=== PATIENT | female | born 1930 | race Two or more races ===

== ENCOUNTER 2016-09-19 19:55 | Inpatient (IN) | payer MEDICAID ==
[~2016-09-19] VITALS: Ht 152.4 cm; Wt 47.6 kg
[2016-09-19 20:21] LABS: MEAN CORPUSCULAR HEMOGLOBIN 29.9 PG (27.0-31.0); MEAN CORPUSCULAR VOLUME 91 FL (80-99); PLATELET COUNT 258 K/UL (150-450); RED CELL DISTRIBUTION WIDTH 14.3 % (11.6-14.8); WHITE BLOOD COUNT 18.7 K/UL (4.8-10.8)
[2016-09-19 20:26] LABS: BASOPHILS % (AUTO) 0.5 % (0.0-2.0); EOSINOPHILS % (AUTO) 0.1 % (0.0-3.0); LYMPHOCYTES % (AUTO) 17.6 % (20.0-45.0); NEUTROPHILS % (AUTO) 75.8 % (45.0-75.0)
--- NOTE | 2016-09-19 20:29 | Emergency Room Report ---
History of Present Illness General Chief Complaint: Vomiting Source: Medical Record Present Illness HPI patient was reported to have vomiting Has a history of Alzheimer's and dementia Is at baseline levels of mentation per paramedics History of present illness however is limited as the patient herself is not verbal with us And cannot provide any further input Patient does have a feeding tube in place unknown regarding diarrhea unknown regarding general health as far as weakness Unknown as far as change in medications Allergies: Coded Allergies: No Known Allergies (Unverified , 09/19/16) Patient History Limited by: medical condition Past Medical History: see triage record Pertinent Family History: none Reviewed Nursing Documentation: PMH: Agreed, PSxH: Agreed Nursing Documentation-PMH Hx Hypertension: Yes Hx Diabetes: Yes Review of Systems All Other Systems: limited - Other than the ones mentioned in the history of present illness all others are reviewed however they do stay limited due to the patient's mental status Physical Exam Vital Signs Date Time Temp Pulse Resp B/P Pulse Ox O2 Delivery O2 Flow Rate FiO2 09/19/16 19:48 98.1 88 16 138/76 98 Room Air Sp02 EP Interpretation: reviewed, normal General Appearance: no apparent distress Head: normocephalic, atraumatic Eyes: bilateral eye EOMI, bilateral eye PERRL ENT: hearing grossly normal, normal pharynx, TMs + canals normal, uvula midline , other - Patient does have some dried brown material in her oral mucosa Neck: full range of motion, supple, no meningismus, no bony tend Respiratory: lungs clear, normal breath sounds, no rhonchi, no respiratory distress, no retraction, no accessory muscle use Cardiovascular #1: normal peripheral pulses, regular rate, rhythm, no edema, no gallop, no JVD, no murmur Gastrointestinal: normal bowel sounds, non tender, soft, no mass, no organomegaly, non-distended, no guarding, no hernia, no pulsatile mass, no rebound, other - feeding tube in place Genitourinary: no CVA tenderness Musculoskeletal: other - Patient does not follow commands musculoskeletal exam is difficult however no obvious focal deficit, Neurologic: responsive, sensory intact Psychiatric: mood/affect normal Skin: normal color, no rash, warm/dry, palpation normal Lymphatic: normal inspection, no adenopathy Medical Decision Making Diagnostic Impression: Primary Impression: GI bleed Additional Impression: Leukocytosis ER Course Patient does have evidence of coffee-ground emesis Concerning for acute GI bleed Patient was given IV Protonix hydration initially is obtained and performed Patient's hemoglobin is stable and further transfusion was not done Patient admitted for the further inpatient care Labs Test 09/19/16 20:10 White Blood Count 18.7 K/UL (4.8-10.8) Red Blood Count 4.70 M/UL (4.20-5.40) Hemoglobin 14.1 G/DL (12.0-16.0) Hematocrit 42.6 % (37.0-47.0) Mean Corpuscular Volume 91 FL (80-99) Mean Corpuscular Hemoglobin 29.9 PG (27.0-31.0) Mean Corpuscular Hemoglobin Concent 33.0 G/DL (32.0-36.0) Red Cell Distribution Width 14.3 % (11.6-14.8) Platelet Count 258 K/UL (150-450) Mean Platelet Volume 8.0 FL (6.5-10.1) Neutrophils (%) (Auto) 75.8 % (45.0-75.0) Lymphocytes (%) (Auto) 17.6 % (20.0-45.0) Monocytes (%) (Auto) 6.0 % (1.0-10.0) Eosinophils (%) (Auto) 0.1 % (0.0-3.0) Basophils (%) (Auto) 0.5 % (0.0-2.0) Prothrombin Time 10.7 SEC (9.30-11.50) Prothromb Time International Ratio 1.1 (0.9-1.1) Activated Partial Thromboplast Time 26 SEC (23-33) Sodium Level 139 mEQ/L (135-145) Potassium Level 4.6 mEQ/L (3.4-4.9) Chloride Level 99 mEQ/L (98-107) Carbon Dioxide Level 21 mEQ/L (20-30) Anion Gap 19 (5-15) Blood Urea Nitrogen 50 mg/dL (7-23) Creatinine 0.5 mg/dL (0.5-0.9) Estimat Glomerular Filtration Rate mL/min (>60) Glucose Level 185 mg/dL (74-106) Calcium Level 9.2 mg/dL (8.6-10.2) Total Bilirubin 1.4 mg/dL (0.0-1.2) Direct Bilirubin 0.2 mg/dL (0.1-0.3) Aspartate Amino Transf (AST/SGOT) 19 U/L (5-40) Alanine Aminotransferase (ALT/SGPT) 27 U/L (3-33) Alkaline Phosphatase 96 U/L (35-104) Total Creatine Kinase 31 U/L (26-140) Creatine Kinase MB 2.1 ng/mL (< 3.8) Creatine Kinase MB Relative Index 6.7 Troponin I < 0.30 ng/mL (<=0.30) Pro-B-Type Natriuretic Peptide 321 pg/mL (0-450) Total Protein 6.7 g/dL (6.6-8.7) Albumin 3.5 g/dL (3.5-5.2) Globulin 3.2 g/dL Albumin/Globulin Ratio 1.0 (1.0-2.7) Lipase 26 U/L (< 60) Rhythm Strip Diag. Results EP Interpretation: yes Rate: 74 Rhythm: NSR, no PVC's, no ectopy Chest X-Ray Diagnostic Results EP Interpretation: Yes Findings: no consolidation, no effusion, no pneumothorax Number of Views: 1 Last Vital Signs Date Time Temp Pulse Resp B/P Pulse Ox O2 Delivery O2 Flow Rate FiO2 09/19/16 19:48 98.1 88 16 138/76 98 Room Air Status: improved Disposition: ADMITTED INPATIENT Condition: Serious DMITRY RICARDO D.O. Sep 19, 2016 20:29
[2016-09-19 20:34] LABS: INR 1.1 (0.9-1.1); PROTHROMBIN TIME 10.7 SEC (9.30-11.50)
[2016-09-19 20:36] LABS: ALANINE AMINOTRANSFERASE 27 U/L (3-33); ASPARTATE AMINO TRANSFERASE 19 U/L (5-40); CALCIUM 9.2 mg/dL (8.6-10.2); CHLORIDE 99 mEQ/L (98-107); CREATININE 0.5 mg/dL (0.5-0.9); HEMOLYSIS 13; LIPASE 26 U/L (< 60); POTASSIUM 4.6 mEQ/L (3.4-4.9); SODIUM 139 mEQ/L (135-145); TOTAL PROTEIN 6.7 g/dL (6.6-8.7)
[2016-09-19 20:37] LABS: TROPONIN I < 0.30 ng/mL (<=0.30)
[2016-09-19 20:47] LABS: CKMB 2.1 ng/mL (< 3.8)
[2016-09-19 21:05] LABS: ANION GAP 19 (5-15); CARBON DIOXIDE 21 mEQ/L (20-30)
[2016-09-19 21:13] VITALS: BP 145/45
[2016-09-19 21:21] LABS: BILIRUBIN,DIRECT 0.2 mg/dL (0.1-0.3)
[2016-09-19] MEDS ORDERED: Pantoprazole Inj IVP ONE (21:30)
[2016-09-19] MEDS ORDERED: cefTRIAXone 1 GM in NS 55 ML IVPB ONE (21:30)
[2016-09-19] MEDS ORDERED: ATORVASTATIN CA20 MG ORAL (21:36)
[2016-09-19] MEDS ORDERED: DOCUSATE SODIU100 MG ORAL (21:36)
[2016-09-19] MEDS ORDERED: MULTI-DELYN237 ML GT (21:36)
[2016-09-19] MEDS ORDERED: ARICEPT10 MG ORAL (21:36)
[2016-09-19 22:30] VITALS: BP 122/64
--- NOTE | 2016-09-19 23:41 | General Progress Note ---
Assessment/Plan Assessment/Plan GI Consult Dictated Assessment - ? small volume UGIB - Leukocytosis, ? aspiration, ?other - OBS - s/p PEG - bedbound Recommendations - IVF - follow CBC - emperic abx - PPI - hold feeds - EGD early next week - will d/w next of kin in am Thank you Payal Subjective Allergies: Coded Allergies: No Known Allergies (Unverified , 09/19/16) Objective Last 24 Hour Vital Signs Date Time Temp Pulse Resp B/P Pulse Ox O2 Delivery O2 Flow Rate FiO2 09/19/16 22:30 97.5 137 20 122/64 95 Room Air 09/19/16 22:30 97.5 120 19 122/64 97 Room Air 09/19/16 21:13 98.2 120 20 145/45 100 Room Air 09/19/16 19:48 98.1 88 16 138/76 98 Room Air Laboratory Tests 09/19/16 20:10: White Blood Count 18.7H, Red Blood Count 4.70, Hemoglobin 14.1, Hematocrit 42.6 , Mean Corpuscular Volume 91, Mean Corpuscular Hemoglobin 29.9, Mean Corpuscular Hemoglobin Concent 33.0, Red Cell Distribution Width 14.3, Platelet Count 258, Mean Platelet Volume 8.0, Neutrophils (%) (Auto) 75.8H, Lymphocytes ( %) (Auto) 17.6L, Monocytes (%) (Auto) 6.0, Eosinophils (%) (Auto) 0.1, Basophils (%) (Auto) 0.5, Prothrombin Time 10.7, Prothromb Time International Ratio 1.1, Activated Partial Thromboplast Time 26, Sodium Level 139, Potassium Level 4.6, Chloride Level 99, Carbon Dioxide Level 21, Anion Gap 19H, Blood Urea Nitrogen 50H, Creatinine 0.5, Estimat Glomerular Filtration Rate , Glucose Level 185H, Calcium Level 9.2, Total Bilirubin 1.4H, Direct Bilirubin 0.2, Aspartate Amino Transf (AST/SGOT) 19, Alanine Aminotransferase (ALT/SGPT) 27, Alkaline Phosphatase 96, Total Creatine Kinase 31, Creatine Kinase MB 2.1, Creatine Kinase MB Relative Index 6.7, Troponin I < 0.30, Pro-B-Type Natriuretic Peptide 321, Total Protein 6.7, Albumin 3.5, Globulin 3.2, Albumin/ Globulin Ratio 1.0, Lipase 26 Height (Feet): 5 Weight (Pounds): 105 NUZHAT WALTON Sep 19, 2016 23:41
[2016-09-19] MEDS: D5 1/2NS w/KCl 40meq 1000ml 1,000 ML IV SCH (23:52)
[2016-09-20 00:04] VITALS: BP 127/58
[2016-09-20] MEDS: Zolpidem 5mg tab ORAL PRN (00:05)
[2016-09-20 04:03] VITALS: BP 129/51
[2016-09-20] MEDS ORDERED: Zosyn 3.375gm inj ONE (05:34)
[2016-09-20] MEDS ORDERED: Piperacillin/Tazobactam 2.25 GM in D5W 55 ML IVPB SCH (06:00)
[2016-09-20] MEDS: Zosyn 3.375gm q8h **Extended infusion IVPB SCH ×6 (06:40→21:01)
[2016-09-20 07:39] LABS: BASOPHILS % (AUTO) 0.4 % (0.0-2.0); EOSINOPHILS % (AUTO) 0.4 % (0.0-3.0); LYMPHOCYTES % (AUTO) 22.9 % (20.0-45.0); MEAN CORPUSCULAR HEMOGLOBIN 30.1 PG (27.0-31.0); MEAN CORPUSCULAR HGB CONC 33.2 G/DL (32.0-36.0); MEAN CORPUSCULAR VOLUME 91 FL (80-99); MEAN PLATELET VOLUME 8.4 FL (6.5-10.1); NEUTROPHILS % (AUTO) 69.3 % (45.0-75.0); PLATELET COUNT 214 K/UL (150-450); RED BLOOD COUNT 3.52 M/UL (4.20-5.40); RED CELL DISTRIBUTION WIDTH 14.7 % (11.6-14.8); WHITE BLOOD COUNT 15.1 K/UL (4.8-10.8)
[2016-09-20 08:00] VITALS: BP 95/49
[2016-09-20] MEDS: Multivitamin 5ml Liquid GT SCH (08:32)
[2016-09-20] MEDS: Docusate 100mg tablet NG SCH (08:32)
[2016-09-20] MEDS: Donepezil 10mg tab ORAL SCH (08:32)
[2016-09-20] MEDS: Pantoprazole Inj IV SCH (08:33)
[2016-09-20] MEDS ORDERED: Docusate 100mg cap ORAL SCH (09:00)
--- NOTE | 2016-09-20 09:50 | General Progress Note ---
Assessment/Plan Assessment/Plan Assessment - UGIB - anemia / drop in H&H - Leukocytosis, ? aspiration, ?other - OBS - s/p PEG - bedbound Recommendations - IVF - follow CBC - emperic abx - PPI - hold feeds - EGD in am Subjective Allergies: Coded Allergies: No Known Allergies (Unverified , 09/19/16) Subjective uneventful night confused no vomiting d/w DTR - agreed to EGD Objective Last 24 Hour Vital Signs Date Time Temp Pulse Resp B/P Pulse Ox O2 Delivery O2 Flow Rate FiO2 09/20/16 08:46 93 09/20/16 04:03 97.8 99 17 129/51 96 Room Air 09/20/16 04:00 98 09/20/16 00:04 98.2 132 19 127/58 92 Room Air 09/20/16 00:00 125 09/19/16 22:30 97.5 137 20 122/64 95 Room Air 09/19/16 22:30 97.5 120 19 122/64 97 Room Air 09/19/16 21:13 98.2 120 20 145/45 100 Room Air 09/19/16 19:48 98.1 88 16 138/76 98 Room Air Intake and Output 09/19/16 09/20/16 19:00 07:00 Intake Total 2000 ml Output Total 400 ml Balance 1600 ml Intake IV Total 950 ml Other 1050 ml Output Urine Total 400 ml Laboratory Tests 09/19/16 20:10: White Blood Count 18.7H, Red Blood Count 4.70, Hemoglobin 14.1, Hematocrit 42.6 , Mean Corpuscular Volume 91, Mean Corpuscular Hemoglobin 29.9, Mean Corpuscular Hemoglobin Concent 33.0, Red Cell Distribution Width 14.3, Platelet Count 258, Mean Platelet Volume 8.0, Neutrophils (%) (Auto) 75.8H, Lymphocytes ( %) (Auto) 17.6L, Monocytes (%) (Auto) 6.0, Eosinophils (%) (Auto) 0.1, Basophils (%) (Auto) 0.5, Prothrombin Time 10.7, Prothromb Time International Ratio 1.1, Activated Partial Thromboplast Time 26, Sodium Level 139, Potassium Level 4.6, Chloride Level 99, Carbon Dioxide Level 21, Anion Gap 19H, Blood Urea Nitrogen 50H, Creatinine 0.5, Estimat Glomerular Filtration Rate , Glucose Level 185H, Calcium Level 9.2, Total Bilirubin 1.4H, Direct Bilirubin 0.2, Aspartate Amino Transf (AST/SGOT) 19, Alanine Aminotransferase (ALT/SGPT) 27, Alkaline Phosphatase 96, Total Creatine Kinase 31, Creatine Kinase MB 2.1, Creatine Kinase MB Relative Index 6.7, Troponin I < 0.30, Pro-B-Type Natriuretic Peptide 321, Total Protein 6.7, Albumin 3.5, Globulin 3.2, Albumin/ Globulin Ratio 1.0, Lipase 26 09/20/16 06:45: White Blood Count 15.1H, Red Blood Count 3.52L, Hemoglobin 10.6L, Hematocrit 31.9L, Mean Corpuscular Volume 91, Mean Corpuscular Hemoglobin 30.1, Mean Corpuscular Hemoglobin Concent 33.2, Red Cell Distribution Width 14.7, Platelet Count 214, Mean Platelet Volume 8.4, Neutrophils (%) (Auto) 69.3, Lymphocytes (% ) (Auto) 22.9, Monocytes (%) (Auto) 7.0, Eosinophils (%) (Auto) 0.4, Basophils ( %) (Auto) 0.4 Height (Feet): 5 Height (Inches): 0.00 Weight (Pounds): 105 Objective Elderly woman NCAT supple CTA RRR soft ND NT no edema nonfocal/confused NUZHAT WALTON Sep 20, 2016 09:50
[2016-09-20 11:54] VITALS: BP 108/61
--- NOTE | 2016-09-20 11:56 | History & Physical ---
History and Physical History & Physicial dictated [id number] AVILA CHRIS Sep 20, 2016 11:56
[2016-09-20] MEDS: D5 1/2NS w/KCl 40meq 1000ml 1,000 ML IV SCH (13:56)
[2016-09-20 16:00] VITALS: BP 107/66
--- NOTE | 2016-09-20 19:37 | Cardiology Report ---
APPROVED REPORT EKG Measurement Heart [id number] Sinus tachycardia Otherwise normal ECG
[2016-09-20 20:00] VITALS: BP 132/63
[2016-09-20] MEDS: LORazepam Inj 2mg/ml 1ml IV PRN (21:01)
[2016-09-20] MEDS: Atorvastatin 20mg tab ORAL SCH (21:01)
--- NOTE | 2016-09-20 22:47 | Consultation ---
DATE OF CONSULTATION: 09/19/2016 GASTROLOGY CONSULTATION: CONSULTING PHYSICIAN: Khurram Moe M.D. REFERRING PHYSICIAN: Nino Hernandez M.D. CHIEF COMPLAINT: I was asked to see this patient by Dr. Nino Hernandez for evaluation of gastrointestinal bleeding. HISTORY OF PRESENT ILLNESS: The patient is an unfortunate 86-year-old white woman with advanced dementia, who was mumbling incoherently when I examined her, who was brought into the hospital with vomiting and possible coffee-ground emesis. There is history available but according to the chart, the patient was noted to have some coffee-ground emesis. There was no melena reported and no hematochezia. The patient had leukocytosis in the emergency room and the source is unclear. The patient diagnosis through observation and treatment. The patient has contracture deformities and obviously is bedbound. PAST MEDICAL HISTORY: As above for history of dementia and status post gastrostomy tube placement. MEDICATIONS: See chart for details. FAMILY HISTORY: Not available. SOCIAL HISTORY: The patient resides in a group home, otherwise no social history is available. REVIEW OF SYSTEMS: Unobtainable. PHYSICAL EXAMINATION: GENERAL: This is a debilitated elderly woman, who was mumbling incoherently, and was seen in her room with the nurse at the bedside. HEENT: Normocephalic and atraumatic. Sclerae were anicteric. Oropharynx is clear. NECK: Supple. CHEST: Clear to auscultation. CARDIOVASCULAR: Regular rate. ABDOMEN: Soft with good bowel sounds. Gastrostomy tube was in good position and it appeared to have some dark aspirate. EXTREMITIES: Revealed contracture deformities. NEUROLOGIC: Nonfocal. LABORATORY DATA: Noted. ASSESSMENT: This patient presents with coffee-ground emesis without christofer melena or hypertension. Hematocrit is preserved with hydration. The patient does have leukocytosis of unclear source. One possibility is that she may have aspirated during the process of emesis for pulmonary aspiration. Alternatively, she may have had a different source of urinary tract infection. I will place the patient on broad-spectrum antibiotics until further evaluation is complete. In the meantime, she should also be kept NPO proton- pump inhibitor. CBC will be followed. The patient should undergo endoscopy in the next few days. RECOMMENDATIONS: Per above discussion and per orders written in the chart. Thank you for asking me to participate in the care of this patient. Khurram Moe M.D. DR: Jazz JOB#: [id number] CC:
[2016-09-21] VITALS (9 sets, daily range): BP systolic 104–134; BP diastolic 48–79
[2016-09-21] MEDS: Zolpidem 5mg tab ORAL PRN (00:09)
[2016-09-21] MEDS: D5 1/2NS w/KCl 40meq 1000ml 1,000 ML IV SCH (01:45)
--- NOTE | 2016-09-21 02:08 | History and Physical Report ---
DATE OF ADMISSION: 09/19/2016 CHIEF COMPLAINT: The patient was found to have some vomiting. HISTORY OF PRESENT ILLNESS: This is an 86-year-old female, who has a history of Alzheimer dementia, unable to provide any history. History was obtained mainly from the chart. The patient was brought with reported vomiting, per the ER physician it was coffee ground. The patient was diagnosed with upper gastrointestinal bleed and was admitted. PAST MEDICAL HISTORY: There is a reported history of hypertension and diabetes. MEDICATIONS: Reviewed in the EMR. SOCIAL HISTORY: Unobtainable. REVIEW OF SYSTEMS: Unobtainable. PHYSICAL EXAMINATION: GENERAL: The patient is a elderly female, she is nonverbal. VITAL SIGNS: Blood pressure 95/49, pulse 96, temperature 96.3, respiratory rate 18. HEENT: Pale conjunctivae. Anicteric sclerae. NECK: Supple. LUNGS: Clear to auscultation. HEART: S1 and S2 without murmurs or rubs. ABDOMEN: Soft and nontender. There is a G-tube in upper abdomen. EXTREMITIES: No cyanosis or edema. LABORATORY FINDINGS: The chemistry panel shows serum sodium 139, potassium 4.6, chloride 99, CO2 21, blood sugar is 185. AST 19, ALT 27, total bilirubin is 1.4. CBC shows a WBC of 15.1, hematocrit 31.9, hemoglobin is 10.6, platelets 214,000. ASSESSMENT: This is a 86-year-old female with history of advanced dementia who is admitted with reported coffee-grounds emesis. She has leukocytosis, her initial hematocrit 42.6, but there is significant drop to 31.9 after hydration so probably the patient was dehydrated and now anemia is unmasked PLAN: The patient will be on IV fluids and NPO. Hemoglobin and hematocrit will be followed. The patient was seen by Dr. Moe in GI consultation. The patient is on intravenous Protonix and further change in management will be done based on the above results. Nino Hernandez M.D. DR: Stephenie JOB#: [id number] CC: VIRGILIO
[2016-09-21] MEDS: Zosyn 3.375gm q8h **Extended infusion IVPB SCH ×6 (06:49→21:01)
[2016-09-21 08:18] LABS: BASOPHILS % (AUTO) 0.6 % (0.0-2.0); EOSINOPHILS % (AUTO) 3.9 % (0.0-3.0); MEAN CORPUSCULAR HEMOGLOBIN 29.8 PG (27.0-31.0); MEAN CORPUSCULAR HGB CONC 32.8 G/DL (32.0-36.0); MEAN CORPUSCULAR VOLUME 91 FL (80-99); MEAN PLATELET VOLUME 8.5 FL (6.5-10.1); MONOCYTES % (AUTO) 6.5 % (1.0-10.0); NEUTROPHILS % (AUTO) 62.1 % (45.0-75.0); PLATELET COUNT 206 K/UL (150-450); RED BLOOD COUNT 3.09 M/UL (4.20-5.40); RED CELL DISTRIBUTION WIDTH 14.5 % (11.6-14.8); WHITE BLOOD COUNT 10.8 K/UL (4.8-10.8)
[2016-09-21 08:29] LABS: ALANINE AMINOTRANSFERASE 15 U/L (3-33); ANION GAP 10 (5-15); ASPARTATE AMINO TRANSFERASE 15 U/L (5-40); CALCIUM 8.3 mg/dL (8.6-10.2); CARBON DIOXIDE 24 mEQ/L (20-30); CHLORIDE 105 mEQ/L (98-107); CREATININE 0.6 mg/dL (0.5-0.9); HEMOLYSIS 3; POTASSIUM 4.7 mEQ/L (3.4-4.9); SODIUM 139 mEQ/L (135-145); TOTAL PROTEIN 5.2 g/dL (6.6-8.7)
[2016-09-21 08:44] LABS: BILIRUBIN,DIRECT 0.2 mg/dL (0.1-0.3)
[2016-09-21] MEDS: Donepezil 10mg tab ORAL SCH ×2 (09:00→09:06)
[2016-09-21] MEDS: Docusate 100mg tablet NG SCH ×2 (09:00→09:06)
[2016-09-21] MEDS: Pantoprazole Inj IV SCH ×2 (09:00→09:06)
[2016-09-21] MEDS: Multivitamin 5ml Liquid GT SCH ×2 (09:00→09:06)
[2016-09-21] MEDS ORDERED: Lidocaine 1% MPF 10mg/ml 5ml ONE (11:30)
[2016-09-21] MEDS ORDERED: Propofol 10mg/ml 20ml IV ONE (11:30)
[2016-09-21] MEDS ORDERED: LR 1000ml ONE (11:30)
--- NOTE | 2016-09-21 11:31 | General Progress Note ---
Assessment/Plan Assessment/Plan Assessment - UGIB - anemia / drop in H&H - Leukocytosis, ? aspiration, ?other - OBS - s/p PEG - bedbound Recommendations - IVF - follow CBC - emperic abx - PPI - hold feeds - EGD in am Subjective Allergies: Coded Allergies: No Known Allergies (Unverified , 09/19/16) Subjective seen in GI lab NPO for EGD H&H lower WBC now normal Objective Last 24 Hour Vital Signs Date Time Temp Pulse Resp B/P Pulse Ox O2 Delivery O2 Flow Rate FiO2 09/21/16 08:00 96.0 90 18 107/58 94 Room Air 09/21/16 08:00 80 09/21/16 04:33 89 09/21/16 04:00 97.0 97 20 115/52 98 Room Air 09/21/16 04:00 89 09/21/16 00:00 97.0 110 21 134/79 96 Room Air 09/21/16 00:00 113 09/20/16 20:00 123 09/20/16 20:00 97.9 127 20 132/63 96 Room Air 09/20/16 16:00 96.8 115 20 107/66 96 Room Air 09/20/16 16:00 128 09/20/16 12:00 96 09/20/16 11:54 97.1 111 18 108/61 Intake and Output 09/20/16 09/21/16 19:00 07:00 Intake Total 535.0 ml 585.0 ml Output Total 300 ml 500 ml Balance 235.0 ml 85.0 ml Intake Free Water 50 ml IV Total 485.0 ml 485.0 ml Other 100 ml Output Urine Total 300 ml 500 ml # Bowel Movements 1 Laboratory Tests 09/21/16 07:30: White Blood Count 10.8, Red Blood Count 3.09L, Hemoglobin 9.2L, Hematocrit 28.1L , Mean Corpuscular Volume 91, Mean Corpuscular Hemoglobin 29.8, Mean Corpuscular Hemoglobin Concent 32.8, Red Cell Distribution Width 14.5, Platelet Count 206, Mean Platelet Volume 8.5, Neutrophils (%) (Auto) 62.1, Lymphocytes (% ) (Auto) 27.0, Monocytes (%) (Auto) 6.5, Eosinophils (%) (Auto) 3.9H, Basophils (%) (Auto) 0.6, Sodium Level 139, Potassium Level 4.7, Chloride Level 105, Carbon Dioxide Level 24, Anion Gap 10, Blood Urea Nitrogen 22#, Creatinine 0.6, Estimat Glomerular Filtration Rate , Glucose Level 107H, Calcium Level 8.3L, Total Bilirubin 1.1, Direct Bilirubin 0.2, Aspartate Amino Transf (AST/SGOT) 15 , Alanine Aminotransferase (ALT/SGPT) 15, Alkaline Phosphatase 68, Total Protein 5.2L, Albumin 2.7L, Globulin 2.5, Albumin/Globulin Ratio 1.0 Height (Feet): 5 Height (Inches): 0.00 Weight (Pounds): 105 Objective Elderly woman NCAT supple CTA RRR soft ND NT no edema nonfocal/confused NUZHAT WALTON Sep 21, 2016 11:31
--- NOTE | 2016-09-21 11:32 | Pre-Procedure Note/Attestation ---
Pre-Procedure Note/Attestation Complete Prior to Procedure Planned Procedure: not applicable Procedure Narrative: EGD Indications for Procedure Pre-Operative Diagnosis: UGIB Attestation I attest that I discussed the nature of the procedure; its benefits; risks and complications; and alternatives (and the risks and benefits of such alternatives ), prior to the procedure, with the patient (or the patient's legal quality audit representative). I attest that, if there was a reasonable possibility of needing a blood transfusion, the patient (or the patient's legal quality audit representative) was given the [facility] standardized written summary, pursuant to the Dom [employer] Blood Safety Act ([place] Health and Safety Code # 1645, as amended). I attest that I re-evaluated the patient just prior to the surgery and that there has been no change in the patient's H&P, except as documented below: NUZHAT WALTON Sep 21, 2016 11:32
[2016-09-21] MEDS ORDERED: NS 275ml IVPB ONE (11:46)
--- NOTE | 2016-09-21 11:57 | Endoscopy Procedure Note ---
Endoscopy Procedure Note Indication for Procedure: GIB Procedures Performed: EGD Operative Findings/Diagnosis: severe esophagitis with ulcers, bx esophagus Specimen: yes Pt Tolerated Procedure Well: Yes Estimated Blood Loss: none Anesthesiologist: see report Anesthesia: MAC Medication Given: see anesthesia record Implant(s) used?: No 50 yrs or older w/o bx or poly: Not Applicable 10yrs. F/U not recommended: Not Applicable If not recommended, why?: NUZHAT WALTON Sep 21, 2016 11:57
--- NOTE | 2016-09-21 11:58 | Brief Operative Note ---
Immediate Post Operative Note Operative Note Chief Complaint: GIB Pre-op Diagnosis: UGIB Procedure: EGD/Bx Post-op Diagnosis: GERD/ulcers Surgeon: haylie Anesthesiologist: see report Anesthesia: MAC Specimen: yes Complications: none Condition: stable Estimated Blood Loss: none Drains: none Implant(s) used?: No NUZHAT WALTON Sep 21, 2016 11:58
[2016-09-21] MEDS ORDERED: Pantoprazole 40mg pkt NG SCH (12:00)
[2016-09-21] MEDS ORDERED: LR 1000ml 1,000 ML IVLG SCH (12:04)
--- NOTE | 2016-09-21 12:04 | Anethesia Preoperative Eval ---
Anesthesia Pre-op PMH/ROS General Date of Evaluation: Sep 21, 2016 Time of Evaluation: 11:39 Anesthesiologist: Karin ASA Score: ASA 3 Mallampati Score Class I : Soft palate, uvula, fauces, pillars visible Class II: Soft palate, uvula, fauces visible Class III: Soft palate, base of uvula visible Class IV: Only hard plate visible Mallampati Classification: Class III Surgeon: Payal Diagnosis: Abd Pain Surgical Procedure: EGD Anesthesia History: none Family History: no anesthesia problems Allergies: Coded Allergies: No Known Allergies (Unverified , 09/19/16) Medications: see eMAR Past Medical History Cardiovascular: Reports: HTN Neurologic/Psychiatric: Reports: dementia Endocrine: Reports: DM Hematology/Immune: Reports: anemia Anesthesia Pre-op Phys. Exam Physician Exam Last Vital Signs Date Time Temp Pulse Resp B/P Pulse Ox O2 Delivery O2 Flow Rate FiO2 09/21/16 08:00 96.0 90 18 107/58 94 Room Air Constitutional: NAD Neurologic: CN 2-12 intact Cardiovascular: RRR Respiratory: CTA Gastrointestinal: S/NT/ND Airway Exam Mallampati Score: Class III MO: limited ROM: limited Teeth: missing Anesthesia Pre-op A/P Labs Hematology Test 09/21/16 07:30 White Blood Count 10.8 K/UL (4.8-10.8) Red Blood Count 3.09 M/UL (4.20-5.40) L Hemoglobin 9.2 G/DL (12.0-16.0) L Hematocrit 28.1 % (37.0-47.0) L Mean Corpuscular Volume 91 FL (80-99) Mean Corpuscular Hemoglobin 29.8 PG (27.0-31.0) Mean Corpuscular Hemoglobin Concent 32.8 G/DL (32.0-36.0) Red Cell Distribution Width 14.5 % (11.6-14.8) Platelet Count 206 K/UL (150-450) Mean Platelet Volume 8.5 FL (6.5-10.1) Neutrophils (%) (Auto) 62.1 % (45.0-75.0) Lymphocytes (%) (Auto) 27.0 % (20.0-45.0) Monocytes (%) (Auto) 6.5 % (1.0-10.0) Eosinophils (%) (Auto) 3.9 % (0.0-3.0) H Basophils (%) (Auto) 0.6 % (0.0-2.0) Chemistry Test 09/21/16 07:30 Sodium Level 139 mEQ/L (135-145) Potassium Level 4.7 mEQ/L (3.4-4.9) Chloride Level 105 mEQ/L (98-107) Carbon Dioxide Level 24 mEQ/L (20-30) Anion Gap 10 (5-15) Blood Urea Nitrogen 22 mg/dL (7-23) # Creatinine 0.6 mg/dL (0.5-0.9) Estimat Glomerular Filtration Rate mL/min (>60) Glucose Level 107 mg/dL (74-106) H Calcium Level 8.3 mg/dL (8.6-10.2) L Total Bilirubin 1.1 mg/dL (0.0-1.2) Direct Bilirubin 0.2 mg/dL (0.1-0.3) Aspartate Amino Transf (AST/SGOT) 15 U/L (5-40) Alanine Aminotransferase (ALT/SGPT) 15 U/L (3-33) Alkaline Phosphatase 68 U/L (35-104) Total Protein 5.2 g/dL (6.6-8.7) L Albumin 2.7 g/dL (3.5-5.2) L Globulin 2.5 g/dL Albumin/Globulin Ratio 1.0 (1.0-2.7) Risk Assessment & Plan Assessment: ASA 3 Plan: GA Status Change Before Surgery: Jerod Dimas MD Sep 21, 2016 12:04
--- NOTE | 2016-09-21 12:06 | Immediate Post-Op Evaluation ---
Immediate Post-Op Evalulation Immediate Post-Op Evalulation Procedure: EGD Date of Evaluation: Sep 21, 2016 Time of Evaluation: 12:25 IV Fluids: 200 NS Blood Products: 0 Estimated Blood Loss: 1 Urinary Output: 0 Blood Pressure Systolic: 107 Blood Pressure Diastolic: 65 Pulse Rate: 90 Respiratory Rate: 16 O2 Sat by Pulse Oximetry: 100 Temperature (Fahrenheit): 97.6 Pain Score (1-10): 0 Nausea: No Vomiting: No Complications 0 Patient Status: awake, reacts, patent, none Hydration Status: adequate Jerod Frazier MD Sep 21, 2016 12:06
--- NOTE | 2016-09-21 12:06 | 48 Hour Post Anesthesia Eval ---
Post Anesthesia Evaluation Procedure: EGD Date of Evaluation: Sep 21, 2016 Time of Evaluation: 14:53 Blood Pressure Systolic: 116 0: 66 Pulse Rate: 89 Respiratory Rate: 18 Temperature (Fahrenheit): 97.6 O2 Sat by Pulse Oximetry: 99 Airway: patent Nausea: No Vomiting: No Pain Intensity: 0 Hydration Status: adequate Cardiopulmonary Status: Stable Mental Status/LOC: patient returned to baseline Follow-up Care/Observations: 0 Post-Anesthesia Complications: 0 Follow-up care needed: ready to discharge Jerod Frazier MD Sep 21, 2016 12:06
[2016-09-21] MEDS ORDERED: Oxycodone/Acetaminophen 5-325 ORAL PRN (12:15)
[2016-09-21] MEDS ORDERED: Norco 5mg/325mg tab ORAL PRN (12:15)
[2016-09-21] MEDS ORDERED: fentaNYL 100 mcg/2 mL IV PRN (12:15)
[2016-09-21] MEDS ORDERED: Ketorolac 30mg Inj IV PRN (12:15)
[2016-09-21] MEDS ORDERED: Hydromorphone 0.5mg/0.5ml inj IVP PRN (12:15)
[2016-09-21] MEDS ORDERED: Meperidine 25mg/ml Inj IV PRN (12:15)
[2016-09-21] MEDS ORDERED: Norco 7.5mg/325mg tab ORAL PRN (12:15)
[2016-09-21] MEDS ORDERED: Metoclopramide 10mg/2ml Inj IVP PRN (12:15)
[2016-09-21] MEDS ORDERED: Midazolam 2mg/2ml Inj IVP PRN (12:15)
[2016-09-21] MEDS ORDERED: Ketorolac 60mg Inj IV PRN (12:15)
[2016-09-21] MEDS ORDERED: Labetalol 5mg/ml 20ml vial IV PRN (12:15)
[2016-09-21] MEDS ORDERED: Atropine Inj 1mg/10ml Syr IV PRN (12:15)
[2016-09-21] MEDS ORDERED: LORazepam Inj 2mg/ml 1ml IV PRN (12:15)
[2016-09-21] MEDS ORDERED: DiphenhydrAMINE 50mg/ml Inj IVP PRN (12:15)
--- NOTE | 2016-09-21 13:15 | General Progress Note ---
Assessment/Plan Problem List: (1) GI bleed ICD Codes: K92.2 - Gastrointestinal hemorrhage, unspecified SNOMED: 52458921 (2) Leukocytosis ICD Codes: D72.829 - Elevated white blood cell count, unspecified SNOMED: 908608727, 379468046 (3) Anemia ICD Codes: D64.9 - Anemia, unspecified SNOMED: 566794439 Qualifiers: (4) DM (diabetes mellitus) ICD Codes: E11.9 - Type 2 diabetes mellitus without complications SNOMED: 94720126 (5) HTN (hypertension) ICD Codes: I10 - Essential (primary) hypertension SNOMED: 00089480 Status Narrative anemia worse Assessment/Plan await EGD results ID consult follow labs Subjective Allergies: Coded Allergies: No Known Allergies (Unverified , 09/19/16) Subjective In NAD Objective Last 24 Hour Vital Signs Date Time Temp Pulse Resp B/P Pulse Ox O2 Delivery O2 Flow Rate FiO2 09/21/16 12:24 88 20 115/48 100 Nasal Cannula 3.0 09/21/16 12:19 92 25 129/57 100 Nasal Cannula 3.0 09/21/16 12:15 89 18 99 09/21/16 12:14 98.0 93 23 125/70 100 Nasal Cannula 3.0 09/21/16 12:14 90 16 100 09/21/16 08:00 96.0 90 18 107/58 94 Room Air 09/21/16 08:00 80 09/21/16 04:33 89 09/21/16 04:00 97.0 97 20 115/52 98 Room Air 09/21/16 04:00 89 09/21/16 00:00 97.0 110 21 134/79 96 Room Air 09/21/16 00:00 113 09/20/16 20:00 123 09/20/16 20:00 97.9 127 20 132/63 96 Room Air 09/20/16 16:00 96.8 115 20 107/66 96 Room Air 09/20/16 16:00 128 Intake and Output 09/20/16 09/21/16 18:59 06:59 Intake Total 460.0 ml 660.0 ml Output Total 300 ml 500 ml Balance 160.0 ml 160.0 ml Intake Free Water 50 ml IV Total 410.0 ml 560.0 ml Other 100 ml Output Urine Total 300 ml 500 ml # Bowel Movements 1 Laboratory Tests 09/21/16 07:30: White Blood Count 10.8, Red Blood Count 3.09L, Hemoglobin 9.2L, Hematocrit 28.1L , Mean Corpuscular Volume 91, Mean Corpuscular Hemoglobin 29.8, Mean Corpuscular Hemoglobin Concent 32.8, Red Cell Distribution Width 14.5, Platelet Count 206, Mean Platelet Volume 8.5, Neutrophils (%) (Auto) 62.1, Lymphocytes (% ) (Auto) 27.0, Monocytes (%) (Auto) 6.5, Eosinophils (%) (Auto) 3.9H, Basophils (%) (Auto) 0.6, Sodium Level 139, Potassium Level 4.7, Chloride Level 105, Carbon Dioxide Level 24, Anion Gap 10, Blood Urea Nitrogen 22#, Creatinine 0.6, Estimat Glomerular Filtration Rate , Glucose Level 107H, Calcium Level 8.3L, Total Bilirubin 1.1, Direct Bilirubin 0.2, Aspartate Amino Transf (AST/SGOT) 15 , Alanine Aminotransferase (ALT/SGPT) 15, Alkaline Phosphatase 68, Total Protein 5.2L, Albumin 2.7L, Globulin 2.5, Albumin/Globulin Ratio 1.0 Height (Feet): 5 Height (Inches): 0.00 Weight (Pounds): 105 Cardiovascular: normal rate Respiratory/Chest: lungs clear AVILA CHRIS Sep 21, 2016 13:15
[2016-09-21] MEDS: LORazepam Inj 2mg/ml 1ml IV PRN (13:40)
[2016-09-21] MEDS: Pantoprazole Inj IVP SCH ×2 (13:40→20:57)
--- NOTE | 2016-09-21 20:47 | Operative Note - Dictated ---
DATE OF OPERATION: 09/21/2016 GASTROLOGY PROCEDURE PROCEDURE: Upper gastroendoscopy with biopsy. SURGEON: Khurram Moe M.D. ANESTHESIA: Please see separate anesthesiologist's notes for details. PRE-ENDOSCOPIC DIAGNOSIS: Upper gastrointestinal bleeding. POST-ENDOSCOPIC DIAGNOSIS: Severe erosive and ulcerative esophagitis with approximately two-thirds of the esophagus involved. DESCRIPTION OF PROCEDURE: The procedure, its risks, indications, alternatives, and possible complications were explained to the patient's family and informed consent was obtained. The patient was then sedated in the supine position. A diagnostic upper endoscope was introduced through the oropharynx and advanced to the duodenum without difficulty. The endoscope was then gradually withdrawn and the mucosa examined carefully. The duodenum was normal and the gastric mucosa was also unremarkable except for the presence of a gastrostomy tube. There was a small, less than 1 cm hiatal hernia seen. Above this in the esophagus, there was severe erosive and ulcerative esophagitis with circumferential ulceration in the esophagus extending approximately two-thirds up. The mucosa looked friable, but no christofer bleeding at the time of the endoscopy was noted. A small biopsy of the mid esophagus was sent to pathology for review. The endoscope was removed and the patient was sent to recovery in good condition. COMPLICATIONS: None. RECOMMENDATIONS: 1. Follow up biopsy results. 2. Elevate head of bed. 3. Resume tube feedings. 4. Twice a day proton pump inhibitor. 5. Monitor CBC. Thank you for asking me to participate in the care of this patient. Khurram Moe M.D. DR: BLANCA JOB#: [id number] CC:
[2016-09-21] MEDS: Atorvastatin 20mg tab ORAL SCH (20:57)
[2016-09-22] VITALS (19 sets, daily range): BP systolic 98–132; BP diastolic 54–80
[2016-09-22] MEDS ORDERED: LORazepam Inj 2mg/ml 1ml IV PRN (00:45)
[2016-09-22] MEDS ORDERED: Piperacillin/Tazobactam 3.375 GM in D5W 110 ML IVPB SCH (06:00)
[2016-09-22 07:21] LABS: BASOPHILS % (AUTO) 0.5 % (0.0-2.0); EOSINOPHILS % (AUTO) 4.4 % (0.0-3.0); MEAN CORPUSCULAR HEMOGLOBIN 30.6 PG (27.0-31.0); MEAN CORPUSCULAR HGB CONC 34.3 G/DL (32.0-36.0); MEAN CORPUSCULAR VOLUME 89 FL (80-99); MEAN PLATELET VOLUME 8.6 FL (6.5-10.1); PLATELET COUNT 201 K/UL (150-450); RED CELL DISTRIBUTION WIDTH 14.8 % (11.6-14.8); WHITE BLOOD COUNT 8.9 K/UL (4.8-10.8)
[2016-09-22 07:26] LABS: ALANINE AMINOTRANSFERASE 16 U/L (3-33); ANION GAP 11 (5-15); ASPARTATE AMINO TRANSFERASE 18 U/L (5-40); CALCIUM 8.2 mg/dL (8.6-10.2); CARBON DIOXIDE 25 mEQ/L (20-30); CHLORIDE 101 mEQ/L (98-107); CREATININE 0.6 mg/dL (0.5-0.9); HEMOLYSIS 3; POTASSIUM 4.2 mEQ/L (3.4-4.9); SODIUM 137 mEQ/L (135-145); TOTAL PROTEIN 5.3 g/dL (6.6-8.7)
[2016-09-22 07:27] LABS: HEMOLYSIS 1; IRON 29 ug/dL (37-145); TOTAL IRON BINDING CAPACITY 233 ug/dL (250-400)
[2016-09-22] MEDS: Donepezil 10mg tab ORAL SCH (09:00)
[2016-09-22] MEDS: Docusate 100mg tablet NG SCH (09:00)
[2016-09-22] MEDS: Multivitamin 5ml Liquid GT SCH (09:00)
[2016-09-22] MEDS: Pantoprazole Inj IVP SCH ×2 (09:30→21:00)
[2016-09-22] MEDS ORDERED: Heparin 2000 units/Ns 1000ml 1,000 ML ONE (13:07)
[2016-09-22] MEDS ORDERED: Lidocaine 1% Plain 30 ml INJ ONE (13:08)
[2016-09-22] MEDS ORDERED: Sodium Bicarbonate 8.4% 50ml Inj ONE (13:08)
--- NOTE | 2016-09-22 15:54 | Diagnostic Imaging Report ---
Indication: CP Technique: Single portable AP view of the chest. Findings: Comparison: None. Suboptimal inspiration limits evaluation. Aortic arch calcified. Bones are demineralized. The visualized extra pulmonary soft tissues, remainder of the cardiomediastinal silhouette, pulmonary vasculature and parenchyma, and pleural surfaces are unremarkable. IMPRESSION: No evidence of acute cardiopulmonary disease, limited as described. Upright PA and lateral chest radiographs with better inspiratory effort and optimal technique recommended for more complete evaluation. Aortosclerosis Osteopenia.
--- NOTE | 2016-09-22 16:22 | Diagnostic Imaging Report ---
Indication:Contraindication to medical anticoagulation. Patient has lower extremity DVT and recent upper GI bleed Procedure: After the indications, procedure, risks, complications, and alternatives of the procedure were explained, written informed consent was obtained. Patient was brought to the angio-fluoroscopic suite and placed supine on the table. The right neck was prepped and draped in the standard sterile fashion.1% lidocaine was used to anesthetize the skin. Using ultrasound guidance, the jugular vein was accessed using an 18 gauge needle. An 035 wire was introduced over which a 4 malian multi-endhole infusion catheter was introduced and negotiated into the lower IVC. Standard venogram was performed with digital subtraction. Location of the renal veins was noted. Inferior vena cava filter sheath was then exchanged over the wire. Inner stylette and wire then removed. The filter was then inserted into the sheath. Under fluoroscopic observation, the IVC filter was then unsheathed and deployed. The sheath was carefully removed under fluoroscopic observation. There were no complications. The patient tolerated the procedure well. Manual pressure was held at the site of venopuncture until hemostasis was achieved. Impression: Successful placement of inferior vena cava filter below the renal veins.
--- NOTE | 2016-09-22 16:24 | General Progress Note ---
Assessment/Plan Problem List: (1) GI bleed ICD Codes: K92.2 - Gastrointestinal hemorrhage, unspecified SNOMED: 48370100 (2) Leukocytosis ICD Codes: D72.829 - Elevated white blood cell count, unspecified SNOMED: 943150924, 593244126 (3) Anemia ICD Codes: D64.9 - Anemia, unspecified SNOMED: 484831442 Qualifiers: (4) DM (diabetes mellitus) ICD Codes: E11.9 - Type 2 diabetes mellitus without complications SNOMED: 63925405 (5) HTN (hypertension) ICD Codes: I10 - Essential (primary) hypertension SNOMED: 34643921 (6) DVT (deep venous thrombosis) ICD Codes: I82.409 - Acute embolism and thrombosis of unspecified deep veins of unspecified lower extremity SNOMED: 171070865 Assessment/Plan abxs IV Iron follow H/H will discuss with GI Subjective Allergies: Coded Allergies: No Known Allergies (Unverified , 09/19/16) Subjective got IVF filter Objective Last 24 Hour Vital Signs Date Time Temp Pulse Resp B/P Pulse Ox O2 Delivery O2 Flow Rate FiO2 09/22/16 15:50 98.1 77 20 113/80 97 Room Air 09/22/16 14:31 82 18 3.0 09/22/16 14:23 82 18 3.0 09/22/16 14:21 82 18 123/63 98 Room Air 09/22/16 14:14 87 20 3.0 09/22/16 14:12 87 20 3.0 09/22/16 14:10 87 20 125/57 98 Room Air 09/22/16 14:06 97.0 90 18 116/64 98 Room Air 09/22/16 13:58 80 20 3.0 09/22/16 13:55 80 20 122/63 98 09/22/16 13:53 90 20 3.0 09/22/16 13:45 75 18 123/67 97 Room Air 09/22/16 13:07 90 20 3.0 09/22/16 12:00 97.7 90 20 111/55 94 Nasal Cannula 09/22/16 08:12 96.8 88 18 117/54 98 Room Air 09/22/16 04:20 98.0 85 20 98/65 97 Room Air 09/22/16 00:00 97.4 81 20 118/79 95 Room Air 09/21/16 20:00 98.1 76 21 104/50 97 Room Air Intake and Output 09/21/16 09/22/16 19:00 07:00 Intake Total 625.0 ml 527.5 ml Output Total 150 ml 350 ml Balance 475.0 ml 177.5 ml Intake Free Water 10 ml 100 ml IV Total 585.0 ml 27.5 ml Tube Feeding 30 ml 400 ml Output Urine Total 150 ml 350 ml # Bowel Movements 1 Laboratory Tests 09/22/16 05:05: White Blood Count 8.9, Red Blood Count 2.90L, Hemoglobin 8.9L, Hematocrit 25.9L , Mean Corpuscular Volume 89, Mean Corpuscular Hemoglobin 30.6, Mean Corpuscular Hemoglobin Concent 34.3, Red Cell Distribution Width 14.8, Platelet Count 201, Mean Platelet Volume 8.6, Neutrophils (%) (Auto) 61.0, Lymphocytes (% ) (Auto) 27.0, Monocytes (%) (Auto) 7.0, Eosinophils (%) (Auto) 4.4H, Basophils (%) (Auto) 0.5, Sodium Level 137, Potassium Level 4.2, Chloride Level 101, Carbon Dioxide Level 25, Anion Gap 11, Blood Urea Nitrogen 20, Creatinine 0.6, Estimat Glomerular Filtration Rate , Glucose Level 144H, Calcium Level 8.2L, Iron Level 29L, Total Iron Binding Capacity 233L, Percent Iron Saturation 12L, Unsaturated Iron Binding 204, Total Bilirubin 0.8, Aspartate Amino Transf (AST/ SGOT) 18, Alanine Aminotransferase (ALT/SGPT) 16, Alkaline Phosphatase 75, Total Protein 5.3L, Albumin 2.7L, Globulin 2.6, Albumin/Globulin Ratio 1.0 Height (Feet): 5 Height (Inches): 0.00 Weight (Pounds): 105 Cardiovascular: normal rate Respiratory/Chest: lungs clear AVILA CHRIS Sep 22, 2016 16:24
[2016-09-22] MEDS ORDERED: Atorvastatin 20mg tab ORAL SCH (21:00)
--- NOTE | 2016-09-22 21:27 | Consultation ---
DATE OF CONSULTATION: 09/22/2016 INFECTIOUS DISEASE CONSULTATION CONSULTING PHYSICIAN: Colin Hernandez M.D. PRIMARY ATTENDING PHYSICIAN: Nino Hernandez M.D. REASON FOR CONSULTATION: Leukocytosis. HISTORY OF PRESENT ILLNESS: This is an 86-year-old female admitted on 09/19/2016 with coffee-ground vomiting. The patient had significant leukocytosis at the time of admission. WBC count was 18.7. She had EGD and biopsy. EGD showed gastroesophageal reflux disease and esophageal ulcers. A venous Duplex showed left leg DVT. Today, she had an IVC filter placement. PAST MEDICAL HISTORY: Advanced dementia. The patient is status post G-tube placement. Has diabetes and hypertension. MEDICATIONS: Atorvastatin, Colace, Aricept, multivitamin, Protonix, Zosyn, and lorazepam. No other history is obtainable from the patient. PHYSICAL EXAMINATION: VITAL SIGNS: Temperature 97 degrees, pulse 82, and blood pressure 133/63. The patient is afebrile. GENERAL APPEARANCE: Seems to be thin, no acute distress. Awake and nonverbal. HEENT: Heart[place] conjunctivae. HEART: Regular. LUNGS: Clear. ABDOMEN: Soft and nontender. Bowel sounds present. EXTREMITIES: No edema. Has bilateral foot drop and muscle atrophy. LABORATORY DATA: WBC today 8.9, hemoglobin 8.9, hematocrit 25.9, and platelets is 201,000. Sodium 137, potassium 4.2, chloride 101, bicarbonate 25, BUN 20, and creatinine 0.6. Glucose 144. LFTs normal. Albumin is low at 2.7. MRSA screen is positive. VRE screen is positive. Venous duplex shows left leg DVT. 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 RECOMMENDATIONS: We will discontinue Zosyn and observe off antibiotics. We will follow up with esophageal biopsy to rule out CMV. At the end of my exam, I thank, Dr. Nino Hernandez, for involving me in the care of this patient. Colin Hernandez M.D. DR: PAULA JOB#: [id number] CC:
--- NOTE | 2016-09-22 22:41 | General Progress Note ---
Assessment/Plan Assessment/Plan Assessment - UGIB - anemia / drop in H&H - OBS - s/p PEG - bedbound Recommendations - IVF - follow CBC - emperic abx - PPI Subjective Allergies: Coded Allergies: No Known Allergies (Unverified , 09/19/16) Subjective TF tolerated well calm and confused Objective Last 24 Hour Vital Signs Date Time Temp Pulse Resp B/P Pulse Ox O2 Delivery O2 Flow Rate FiO2 09/22/16 19:56 98.6 101 22 132/55 97 Room Air 09/22/16 15:50 98.1 77 20 113/80 97 Room Air 09/22/16 14:31 82 18 3.0 09/22/16 14:23 82 18 3.0 09/22/16 14:21 82 18 123/63 98 Room Air 09/22/16 14:14 87 20 3.0 09/22/16 14:12 87 20 3.0 09/22/16 14:10 87 20 125/57 98 Room Air 09/22/16 14:06 97.0 90 18 116/64 98 Room Air 09/22/16 13:58 80 20 3.0 09/22/16 13:55 80 20 122/63 98 09/22/16 13:53 90 20 3.0 09/22/16 13:45 75 18 123/67 97 Room Air 09/22/16 13:07 90 20 3.0 09/22/16 12:00 97.7 90 20 111/55 94 Nasal Cannula 09/22/16 08:12 96.8 88 18 117/54 98 Room Air 09/22/16 04:20 98.0 85 20 98/65 97 Room Air 09/22/16 00:00 97.4 81 20 118/79 95 Room Air Intake and Output 09/21/16 09/22/16 19:00 07:00 Intake Total 625.0 ml 527.5 ml Output Total 150 ml 350 ml Balance 475.0 ml 177.5 ml Intake Free Water 10 ml 100 ml IV Total 585.0 ml 27.5 ml Tube Feeding 30 ml 400 ml Output Urine Total 150 ml 350 ml # Bowel Movements 1 Laboratory Tests 09/22/16 05:05: White Blood Count 8.9, Red Blood Count 2.90L, Hemoglobin 8.9L, Hematocrit 25.9L , Mean Corpuscular Volume 89, Mean Corpuscular Hemoglobin 30.6, Mean Corpuscular Hemoglobin Concent 34.3, Red Cell Distribution Width 14.8, Platelet Count 201, Mean Platelet Volume 8.6, Neutrophils (%) (Auto) 61.0, Lymphocytes (% ) (Auto) 27.0, Monocytes (%) (Auto) 7.0, Eosinophils (%) (Auto) 4.4H, Basophils (%) (Auto) 0.5, Sodium Level 137, Potassium Level 4.2, Chloride Level 101, Carbon Dioxide Level 25, Anion Gap 11, Blood Urea Nitrogen 20, Creatinine 0.6, Estimat Glomerular Filtration Rate , Glucose Level 144H, Calcium Level 8.2L, Iron Level 29L, Total Iron Binding Capacity 233L, Percent Iron Saturation 12L, Unsaturated Iron Binding 204, Total Bilirubin 0.8, Aspartate Amino Transf (AST/ SGOT) 18, Alanine Aminotransferase (ALT/SGPT) 16, Alkaline Phosphatase 75, Total Protein 5.3L, Albumin 2.7L, Globulin 2.6, Albumin/Globulin Ratio 1.0 Height (Feet): 5 Height (Inches): 0.00 Weight (Pounds): 105 Objective Elderly woman NCAT supple CTA RRR soft ND NT no edema nonfocal/confused NUZHAT WALTON Sep 22, 2016 22:41
[2016-09-23] VITALS: BP 133/64
[2016-09-23 04:00] VITALS: BP 119/68
[2016-09-23 06:29] LABS: BASOPHILS % (AUTO) 0.4 % (0.0-2.0); EOSINOPHILS % (AUTO) 2.1 % (0.0-3.0); LYMPHOCYTES % (AUTO) 26.2 % (20.0-45.0); MEAN CORPUSCULAR HEMOGLOBIN 30.4 PG (27.0-31.0); MEAN CORPUSCULAR HGB CONC 33.7 G/DL (32.0-36.0); MEAN CORPUSCULAR VOLUME 90 FL (80-99); MEAN PLATELET VOLUME 8.8 FL (6.5-10.1); MONOCYTES % (AUTO) 7.3 % (1.0-10.0); PLATELET COUNT 247 K/UL (150-450); RED BLOOD COUNT 3.35 M/UL (4.20-5.40); RED CELL DISTRIBUTION WIDTH 14.9 % (11.6-14.8); WHITE BLOOD COUNT 9.8 K/UL (4.8-10.8)
[2016-09-23 07:01] LABS: ANION GAP 11 (5-15); CALCIUM 8.9 mg/dL (8.6-10.2); CARBON DIOXIDE 26 mEQ/L (20-30); CHLORIDE 102 mEQ/L (98-107); CREATININE 0.5 mg/dL (0.5-0.9); HEMOLYSIS 3; POTASSIUM 4.4 mEQ/L (3.4-4.9); SODIUM 139 mEQ/L (135-145)
[2016-09-23 08:00] VITALS: BP 110/68
[2016-09-23] MEDS: Docusate 100mg tablet NG SCH (09:12)
[2016-09-23] MEDS: Multivitamin 5ml Liquid GT SCH (09:12)
[2016-09-23] MEDS: Donepezil 10mg tab ORAL SCH (09:12)
[2016-09-23] MEDS: Pantoprazole Inj IVP SCH (09:13)
[2016-09-23] MEDS ORDERED: PROTONIX40 M2 GT (11:34)
[2016-09-23] MEDS ORDERED: HEPARIN SO5000 UNIT2 SUBQ (11:34)
--- NOTE | 2016-09-23 11:42 | Consultation ---
Consult Note Assessment/Plan Dc dictated #[id number] AVILA CHRIS Sep 23, 2016 11:42
[2016-09-23 12:00] VITALS: BP 123/89
--- NOTE | 2016-09-23 15:13 | Infectious Diseases Prog Note ---
Assessment/Plan Assessment/Plan A: Leukocytosis GI bleeding DVT s/p IVC filter Anemia MRSA & VRE colonization P: remove Todd catheter before discharge Case was DW RN Subjective ROS Limited/Unobtainable: Yes Allergies: Coded Allergies: No Known Allergies (Unverified , 09/19/16) Objective Vital Signs Last 24 Hour Vital Signs Date Time Temp Pulse Resp B/P Pulse Ox O2 Delivery O2 Flow Rate FiO2 09/23/16 12:00 97.7 68 19 123/89 97 Room Air 09/23/16 08:00 97.9 85 18 110/68 95 Room Air 09/23/16 04:00 97.4 95 18 119/68 95 Room Air 09/23/16 00:00 98.0 86 18 133/64 96 Room Air 09/22/16 19:56 98.6 101 22 132/55 97 Room Air 09/22/16 15:50 98.1 77 20 113/80 97 Room Air Height (Feet): 5 Height (Inches): 0.00 Weight (Pounds): 105 General Appearance: no acute distress HEENT: mucous membranes moist Cardiovascular: normal rate Abdomen: soft, non tender Extremities: no edema Neurologic/Psychiatric: alert Laboratory Tests Test 09/23/16 04:35 White Blood Count 9.8 K/UL (4.8-10.8) Red Blood Count 3.35 M/UL (4.20-5.40) L Hemoglobin 10.2 G/DL (12.0-16.0) L Hematocrit 30.2 % (37.0-47.0) L Mean Corpuscular Volume 90 FL (80-99) Mean Corpuscular Hemoglobin 30.4 PG (27.0-31.0) Mean Corpuscular Hemoglobin Concent 33.7 G/DL (32.0-36.0) Red Cell Distribution Width 14.9 % (11.6-14.8) H Platelet Count 247 K/UL (150-450) Mean Platelet Volume 8.8 FL (6.5-10.1) Neutrophils (%) (Auto) 64.0 % (45.0-75.0) Lymphocytes (%) (Auto) 26.2 % (20.0-45.0) Monocytes (%) (Auto) 7.3 % (1.0-10.0) Eosinophils (%) (Auto) 2.1 % (0.0-3.0) Basophils (%) (Auto) 0.4 % (0.0-2.0) Sodium Level 139 mEQ/L (135-145) Potassium Level 4.4 mEQ/L (3.4-4.9) Chloride Level 102 mEQ/L (98-107) Carbon Dioxide Level 26 mEQ/L (20-30) Anion Gap 11 (5-15) Blood Urea Nitrogen 13 mg/dL (7-23) Creatinine 0.5 mg/dL (0.5-0.9) Estimat Glomerular Filtration Rate mL/min (>60) Glucose Level 155 mg/dL (74-106) H Calcium Level 8.9 mg/dL (8.6-10.2) Current Medications Medications (Trade) Dose Ordered Sig/Gonzalo Route PRN Reason Start Time Stop Time Status Last Admin Dose Admin Atorvastatin Calcium (Lipitor) 20 mg BEDTIME ORAL 09/22/16 21:00 10/22/16 20:59 09/22/16 21:00 Docusate Sodium (Colace) 200 mg DAILY NG 09/22/16 09:00 10/22/16 08:59 09/23/16 09:12 Donepezil HCl (Aricept) 10 mg DAILY ORAL 09/22/16 09:00 10/22/16 08:59 09/23/16 09:12 Lorazepam (Ativan 2mg/ml 1ml) 1 mg Q4H PRN IV Restlessness 09/22/16 00:45 09/29/16 00:44 Multivitamins (Multivitamin Hexavitamin) 5 ml DAILY GT 09/22/16 09:00 10/22/16 08:59 09/23/16 09:12 Pantoprazole (Protonix) 40 mg Q12HR IVP 09/22/16 09:00 10/22/16 08:59 09/23/16 09:13 PRAVIN CHRIS Sep 23, 2016 15:13
[2016-09-23 16:00] VITALS: BP 152/65
--- NOTE | 2016-09-23 21:01 | General Progress Note ---
Assessment/Plan Assessment/Plan Assessment - UGIB - anemia / drop in H&H - OBS - s/p PEG - bedbound Recommendations - IVF - follow CBC - emperic abx - PPI Subjective Allergies: Coded Allergies: No Known Allergies (Unverified , 09/19/16) Subjective TF tolerated well calm and confused for d/c d/w Dr Hernandez re EGD findings Objective Last 24 Hour Vital Signs Date Time Temp Pulse Resp B/P Pulse Ox O2 Delivery O2 Flow Rate FiO2 09/23/16 16:00 98.2 92 20 152/65 98 Room Air 09/23/16 12:00 97.7 68 19 123/89 97 Room Air 09/23/16 08:00 97.9 85 18 110/68 95 Room Air 09/23/16 04:00 97.4 95 18 119/68 95 Room Air 09/23/16 00:00 98.0 86 18 133/64 96 Room Air Intake and Output 09/22/16 09/23/16 19:00 07:00 Intake Total 400 ml 200 ml Output Total 500 ml 900 ml Balance -100 ml -700 ml Intake Free Water 200 ml Tube Feeding 200 ml 200 ml Output Urine Total 500 ml 900 ml # Voids 1 # Bowel Movements 1 Laboratory Tests 09/23/16 04:35: White Blood Count 9.8, Red Blood Count 3.35L, Hemoglobin 10.2L, Hematocrit 30.2L , Mean Corpuscular Volume 90, Mean Corpuscular Hemoglobin 30.4, Mean Corpuscular Hemoglobin Concent 33.7, Red Cell Distribution Width 14.9H, Platelet Count 247, Mean Platelet Volume 8.8, Neutrophils (%) (Auto) 64.0, Lymphocytes (%) (Auto) 26.2, Monocytes (%) (Auto) 7.3, Eosinophils (%) (Auto) 2.1, Basophils (%) (Auto) 0.4, Sodium Level 139, Potassium Level 4.4, Chloride Level 102, Carbon Dioxide Level 26, Anion Gap 11, Blood Urea Nitrogen 13, Creatinine 0.5, Estimat Glomerular Filtration Rate , Glucose Level 155H, Calcium Level 8.9 Height (Feet): 5 Height (Inches): 0.00 Weight (Pounds): 105 Objective Elderly woman NCAT supple CTA RRR soft ND NT no edema nonfocal/confused NUZHAT WALTON Sep 23, 2016 21:01
--- NOTE | 2016-09-24 01:07 | Discharge Summary ---
DATE OF ADMISSION: 09/19/2016 DATE OF DISCHARGE: 09/23/2016 CHIEF COMPLAINT: The patient was sent from [facility] to the ER for vomiting. HISTORY OF PRESENT ILLNESS: This 86-year-old female with history of Alzheimer's dementia, was unable to provide any history. The patient was sent to the ER for coffee-ground emesis. The patient was diagnosed with upper GI bleed. HOSPITAL COURSE: The patient was started on IV fluids. Her initial hematocrit was 42.6 and hemoglobin of 14.1. Hemoglobin as low as 8.9 with hematocrit 25.9, but the patient did not need transfusion and on the day of discharge, hematocrit 30.2 with hemoglobin 10.2. The patient was seen by Dr. Moe, GI consultation. Upper endoscopy was performed and it just showed gastroesophageal reflux disease and esophagitis. The patient was started on proton pump inhibitors. The patient has lower extremity ultrasound shows an acute DVT as well as additional chronic DVTs and she was not a candidate for getting systemic heparin treatment. It was decided to insert an IVC filter. This was done by intervention radiologist on 09/22/2016. The patient remained stable throughout her hospital course and finally she was discharged in stable condition. DISCHARGE DIAGNOSES: 1. Upper gastrointestinal bleed. 2. Esophagitis. 3. Anemia as result of gastrointestinal bleed. 4. Acute deep venous extremity in the lower extremity. 5. History of Alzheimer dementia. Nino Hernandez M.D. DR: Milton JOB#: [id number] CC:
--- NOTE | 2016-09-26 17:11 | Diagnostic Imaging Report ---
APPROVED REPORT CPT Code: 02081 Present Symptoms Comments: R/O DVT Technically difficult study due to stiff legs RIGHT LEG: Venous imaging reveals a patent deep venous system. There is no evidence of thrombus within the femoral, popliteal or tibial segments. The greater saphenous vein is also within normal limits. Doppler indicates normal spontaneous flow within these segments. LEFT LEG: Venous imaging reveals acute thrombus in the common and superficial femoral veins. Venous imaging also reveals recanalized chronic thrombus in the superficial femoral vein. Large collateral vein noted anterior to the superficial femoral artery. The remainder of the deep venous system is within normal limits. There is no evidence of thrombus in the popliteal or calf veins. The greater saphenous vein is also within normal limits. BREONNA Garcia was notified of abnormal results at 1400
--- NOTE | 2016-11-02 11:09 | Diagnostic Imaging Report ---
Indication:Contraindication to medical anticoagulation. Patient has lower extremity DVT and recent upper GI bleed Procedure: After the indications, procedure, risks, complications, and alternatives of the procedure were explained, written informed consent was obtained. Patient was brought to the angio-fluoroscopic suite and placed supine on the table. The right neck was prepped and draped in the standard sterile fashion.1% lidocaine was used to anesthetize the skin. Using ultrasound guidance, the jugular vein was accessed using an 18 gauge needle. An 035 wire was introduced over which a 4 afghan multi-endhole infusion catheter was introduced and negotiated into the lower IVC. Standard venogram was performed with digital subtraction. Location of the renal veins was noted. Inferior vena cava filter sheath was then exchanged over the wire. Inner stylette and wire then removed. The filter was then inserted into the sheath. Under fluoroscopic observation, the IVC filter was then unsheathed and deployed. The sheath was carefully removed under fluoroscopic observation. There were no complications. The patient tolerated the procedure well. Manual pressure was held at the site of venopuncture until hemostasis was achieved. Impression: Successful placement of inferior vena cava filter below the renal veins.
== END 2016-09-23 17:02 | DRG 253 ==
LOC: EDBD 19:55 → EMR 21:09 → 2E 21:30 → EDBEDREQSVC 21:39 → EDBEDREQ 21:54 → 2E 09-20 19:38 → 4W 09-21 22:44
PROC: 0DB58ZX Excision of Esophagus, Via Natural or Artificial Opening Endoscopic, Diagnostic (ICD-10-PCS; principal; 2016-09-21 11:52)
PROC: 06H03DZ Insertion of Intraluminal Device into Inferior Vena Cava, Percutaneous Approach (ICD-10-PCS; 2016-09-22)
DX: K92.2 Gastrointestinal hemorrhage, unspecified (principal); I82.412 Acute embolism and thrombosis of left femoral vein; E11.8 Type 2 diabetes mellitus with unspecified complications; K22.10 Ulcer of esophagus without bleeding; I10 Essential (primary) hypertension; D64.9 Anemia, unspecified; G30.9 Alzheimer's disease, unspecified; F02.80 Dementia in other diseases classified elsewhere, unspecified severity, without behavioral disturbance, psychotic disturbance, mood disturbance, and anxiety; K21.0 Gastro-esophageal reflux disease with esophagitis; Z93.1 Gastrostomy status; Z22.322 Carrier or suspected carrier of Methicillin resistant Staphylococcus aureus
CPT/HCPCS: 36415; 37191; 71010; 75825; 76937; 80048; 80053; 82248; 82550; 82553; 83540; 83550; 83690; 83880; 84484; 85025; 85610; 85730; 87081; 93005; 93970; 94003; 94150

== ENCOUNTER 2017-03-05 22:42 | Inpatient (IN) | payer MEDICAID ==
[~2017-03-05] VITALS: Ht 152.4 cm; Wt 65.8 kg
[~2017-03-05 22:42] MED LIST: ARICEPT10 MG ORAL; ATORVASTATIN CA20 MG ORAL; DOCUSATE SODIU100 MG ORAL; HEPARIN SO5000 UNIT2 SUBQ; MULTI-DELYN237 ML GT; PROTONIX40 M2 GT
--- NOTE | 2017-03-05 22:55 | Emergency Room Report ---
History of Present Illness General Chief Complaint: Vomiting Source: Medical Record, EMS Present Illness HPI This is an 87-year-old demented female with multiple medical problems. She resided in a group home. She has a feeding tube. She present with chief complaint of coffee-ground emesis. She is to episode tonight. No fever or chills. No other complaint. History is limited because of her dementia. Per EMS, group home staff said that her abdomen is distended. 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 Hx Hypertension: Yes - Anemia Hx Diabetes: Yes Hx Gastrointestinal Problems: Yes - GERD, Gastrostomy History Of Psychiatric Problem: Yes - dementia Review of Systems Eye: Denies: blurred vision, eye pain ENT: Denies: ear pain, nose congestion, throat swelling Respiratory: Denies: cough, shortness of breath Cardiovascular: Denies: chest pain, palpitations Gastrointestinal: Reports: nausea, vomiting, Denies: abdominal pain, diarrhea Musculoskeletal: Denies: back pain, joint pain Skin: Denies: rash Neurological: Denies: headache, numbness Endocrine: Denies: increased thirst, increased urine Hematologic/Lymphatic: Denies: easy bruising All Other Systems: negative except mentioned in HPI Physical Exam Vital Signs Date Time Temp Pulse Resp B/P Pulse Ox O2 Delivery O2 Flow Rate FiO2 03/05/17 22:32 125 13 112/60 99 Room Air vitals with tachycardia Sp02 EP Interpretation: reviewed, normal General Appearance: well appearing, no apparent distress, alert, Chronically Ill Head: normocephalic, atraumatic Eyes: bilateral eye EOMI, bilateral eye PERRL ENT: hearing grossly normal, normal pharynx Neck: full range of motion, supple, no meningismus Respiratory: chest non-tender, lungs clear, normal breath sounds Cardiovascular #1: regular rate, rhythm, no murmur, tachycardia Gastrointestinal: normal bowel sounds, non tender, no mass, no organomegaly, no bruit, non-distended, other - G-tube with reddish dark blood around it. Musculoskeletal: back normal, normal range of motion Neurologic: alert Psychiatric: mood/affect normal Skin: warm/dry Medical Decision Making Diagnostic Impression: Primary Impression: Vomiting Qualified Codes: R11.10 - Vomiting, unspecified Additional Impressions: GI bleed Qualified Codes: K92.2 - Gastrointestinal hemorrhage, unspecified Constipation Qualified Codes: K59.00 - Constipation, unspecified Proteinuria Qualified Codes: R80.9 - Proteinuria, unspecified Acute prerenal azotemia HTN (hypertension) Qualified Codes: I10 - Essential (primary) hypertension Esophagitis, acute ER Course Patient presents with 2 episode of coffee-ground emesis. This may be secondary to GI bleeding. She is better now. CT scan show constipation and fecal impaction. No obstruction or perforation. Will admit for further workup and serial H&H. Laboratory Tests Test 03/05/17 23:15 03/05/17 23:20 Urine Color Pale yellow Urine Appearance Clear Urine pH 5 (4.5-8.0) Urine Specific [place] 1.015 (1.005-1.035) Urine Protein 2+ (NEGATIVE) H Urine Glucose (UA) 4+ (NEGATIVE) H Urine Ketones Negative (NEGATIVE) Urine Occult Blood 2+ (NEGATIVE) H Urine Nitrite Negative (NEGATIVE) Urine Bilirubin Negative (NEGATIVE) Urine Urobilinogen Normal MG/DL (0.0-1.0) Urine Leukocyte Esterase Negative (NEGATIVE) Urine RBC 2-4 /HPF (0 - 2) H Urine WBC 0-2 /HPF (0 - 2) Urine Squamous Epithelial Cells Few /LPF (NONE/OCC) Urine Bacteria None /HPF (NONE) White Blood Count 16.2 K/UL (4.8-10.8) H Red Blood Count 4.89 M/UL (4.20-5.40) Hemoglobin 16.1 G/DL (12.0-16.0) H Hematocrit 47.2 % (37.0-47.0) H Mean Corpuscular Volume 97 FL (80-99) Mean Corpuscular Hemoglobin 32.9 PG (27.0-31.0) H Mean Corpuscular Hemoglobin Concent 34.1 G/DL (32.0-36.0) Red Cell Distribution Width 12.3 % (11.6-14.8) Platelet Count 275 K/UL (150-450) Mean Platelet Volume 7.3 FL (6.5-10.1) Neutrophils (%) (Auto) 77.8 % (45.0-75.0) H Lymphocytes (%) (Auto) 15.7 % (20.0-45.0) L Monocytes (%) (Auto) 6.0 % (1.0-10.0) Eosinophils (%) (Auto) 0.1 % (0.0-3.0) Basophils (%) (Auto) 0.5 % (0.0-2.0) Prothrombin Time 10.0 SEC (9.30-11.50) Prothromb Time International Ratio 1.0 (0.9-1.1) Activated Partial Thromboplast Time 25 SEC (23-33) Sodium Level 143 mEQ/L (135-145) Potassium Level 4.4 mEQ/L (3.4-4.9) Chloride Level 101 mEQ/L (98-107) Carbon Dioxide Level 26 mEQ/L (20-30) Anion Gap 16 (5-15) H Blood Urea Nitrogen 38 mg/dL (7-23) H Creatinine 0.5 mg/dL (0.5-0.9) Estimat Glomerular Filtration Rate mL/min (>60) Glucose Level 148 mg/dL (74-106) H Lactic Acid Level 1.80 mmol/L (0.66-2.22) Calcium Level 10.0 mg/dL (8.6-10.2) Total Bilirubin 1.1 mg/dL (0.0-1.2) Direct Bilirubin 0.2 mg/dL (0.1-0.3) Aspartate Amino Transf (AST/SGOT) 21 U/L (5-40) Alanine Aminotransferase (ALT/SGPT) 29 U/L (3-33) Alkaline Phosphatase 113 U/L (35-104) H Total Protein 7.8 g/dL (6.6-8.7) Albumin 3.9 g/dL (3.5-5.2) Globulin 3.9 g/dL Albumin/Globulin Ratio 1.0 (1.0-2.7) Lipase 27 U/L (< 60) Lab Results Impression labs unremarkable except for leukocytosis EKG Diagnostic Results EKG Time: 22:55 Rate: tachycardiac Rhythm: NSR ST Segments: no acute changes Rhythm Strip Diag. Results Rhythm Strip Time: 22:55 EP Interpretation: yes Rate: 110 Rhythm: NSR, no PVC's, no ectopy Chest X-Ray Diagnostic Results Chest X-Ray Diagnostic Results : Chest X-Ray Ordered: Yes # of Views/Limited/Complete: 1 View EP Interpretation: Yes Interpretation: no consolidation, no effusion, no pneumothorax, no acute cardiopulmonary disease Indication: Shortness of Breath Impression: No acute disease Interpreting ER Provider: Electronically signed by Johnny Perea MD CT/MRI/US Diagnostic Results CT/MRI/US Diagnostic Results : Imaging Test Ordered: CT abdomen and pelvis Impression Read by radiologist. Large amount of retained stool. Wanted her hernia. Esophagitis. No bowel obstruction. IVC filter. Last Vital Signs Date Time Temp Pulse Resp B/P Pulse Ox O2 Delivery O2 Flow Rate FiO2 03/05/17 22:32 125 13 112/60 99 Room Air Status: improved Disposition: ADMITTED INPATIENT Condition: Serious JOHNNY PEREA M.D. Mar 05, 2017 22:55
[2017-03-05 23:00] VITALS: BP 144/63
[2017-03-05] MEDS ORDERED: JEVITY 1.5 CA1000 ML GT (23:12)
[2017-03-05] MEDS ORDERED: VITAMIN C250 MG GT (23:12)
[2017-03-05] MEDS ORDERED: REGLAN5 MG ORAL (23:12)
[2017-03-05] MEDS ORDERED: PRO-STAT LIQUID30 ML GT (23:12)
[2017-03-05 23:30] LABS: BASOPHILS % (AUTO) 0.5 % (0.0-2.0); EOSINOPHILS % (AUTO) 0.1 % (0.0-3.0); LYMPHOCYTES % (AUTO) 15.7 % (20.0-45.0); MEAN CORPUSCULAR HEMOGLOBIN 32.9 PG (27.0-31.0); MEAN CORPUSCULAR HGB CONC 34.1 G/DL (32.0-36.0); MEAN CORPUSCULAR VOLUME 97 FL (80-99); MEAN PLATELET VOLUME 7.3 FL (6.5-10.1); NEUTROPHILS % (AUTO) 77.8 % (45.0-75.0); PLATELET COUNT 275 K/UL (150-450); RED BLOOD COUNT 4.89 M/UL (4.20-5.40); RED CELL DISTRIBUTION WIDTH 12.3 % (11.6-14.8); WHITE BLOOD COUNT 16.2 K/UL (4.8-10.8)
[2017-03-05 23:48] LABS: ALANINE AMINOTRANSFERASE 29 U/L (3-33); ANION GAP 16 (5-15); ASPARTATE AMINO TRANSFERASE 21 U/L (5-40); CARBON DIOXIDE 26 mEQ/L (20-30); CHLORIDE 101 mEQ/L (98-107); CREATININE 0.5 mg/dL (0.5-0.9); HEMOLYSIS 8; LIPASE 27 U/L (< 60); POTASSIUM 4.4 mEQ/L (3.4-4.9); SODIUM 143 mEQ/L (135-145); TOTAL PROTEIN 7.8 g/dL (6.6-8.7)
[2017-03-05 23:58] LABS: APPEARANCE,URINE CLEAR; KETONES,URINE NEGATIVE (NEGATIVE); LEUKOCYTE ESTERASE ,URINE NEGATIVE (NEGATIVE); NITRITE,URINE NEGATIVE (NEGATIVE); PH,URINE 5 (4.5-8.0); PROTEIN,URINE 2+ (NEGATIVE); UROBILINOGEN,URINE NORMAL MG/DL (0.0-1.0)
[2017-03-06] VITALS (7 sets, daily range): BP systolic 94–150; BP diastolic 41–73
[2017-03-06 00:16] LABS: SQUAMOUS EPITHELIAL CELL,UR FEW /LPF (NONE/OCC); WBC,URINE 0-2 /HPF (0 - 2)
[2017-03-06 00:25] LABS: BILIRUBIN,DIRECT 0.2 mg/dL (0.1-0.3)
[2017-03-06] MEDS ORDERED: LORazepam Inj 2mg/ml 1ml IV ONE (02:45)
[2017-03-06] MEDS ORDERED: Pantoprazole Inj IVP ONE (02:45)
[2017-03-06] MEDS ORDERED: ACETAMINOPHEN80 MG GT (04:16)
[2017-03-06] MEDS ORDERED: MILK OF MA400 MG/51 GT (04:16)
[2017-03-06] MEDS ORDERED: Nitroglycerin Subl 0.4mg tab (Bottle Of 25) SL PRN (08:45)
[2017-03-06] MEDS ORDERED: Mylanta II UD 30ml ORAL PRN (08:45)
[2017-03-06] MEDS ORDERED: Miralax 17gm pkt ORAL PRN (08:45)
[2017-03-06] MEDS ORDERED: Morphine Sulfate 2mg/ml Inj IVP PRN (08:45)
[2017-03-06] MEDS: D5NS 1,000 ML IV SCH ×2 (09:31→19:35)
[2017-03-06] MEDS ORDERED: Phytonadione 10 MG in D5W 55 ML IVPB ONE (10:00)
--- NOTE | 2017-03-06 11:01 | Diagnostic Imaging Report ---
Indication: Dyspnea Comparison: 09/19/16 A single view chest radiograph was obtained. Findings: Heart is normal in size. Bones are osteopenic. Lungs are clear. Aorta is calcified. Impression: No acute disease
--- NOTE | 2017-03-06 11:13 | History and Physical ---
History of Present Illness General Date patient seen: Mar 06, 2017 Time patient seen: 10:00 Reason for Hospitalization: Vomiting Present Illness HPI 87-year-old female with hx of dysphagia, G tube, GERD, dementia presented with chief complaint of 1 episode of coffee-ground emesis No fever or chills. Patient has a G tube for feeding Workup in ED revealed leukocytosis -16.[address] A/P revealed fecal impaction UA negative for any evidence of UTI CXR no evidence of infection afebrile BUN -38 and creat-0.5 patient was admitted for further management Allergies: Coded Allergies: CEPHALEXIN (Verified Allergy, Unknown, 03/06/17) Medication History Scheduled Amino Acids/Protein Hydrolys (Pro-Stat Liquid), 30 ML GT DAILY, (Reported) Ascorbic Acid* (Vitamin C*), 250 MG GT TWICE A DAY, (Reported) Atorvastatin Calcium* (Atorvastatin Calcium*), 20 MG ORAL BEDTIME, (Reported) Docusate Sodium* (Docusate Sodium*), 200 MG ORAL TWICE A DAY, (Reported) Donepezil Hcl* (Aricept*), 10 MG ORAL HS, (Reported) Heparin Sod (Porcine) (Heparin Sodium*), 5,000 UNITS SUBQ EVERY 12 HOURS Lactose-Reduced Food/Fiber (Jevity 1.5 Deo Liquid), 1,000 ML GT BID, (Reported) Metoclopramide Hcl* (Reglan*), 5 MG ORAL EVERY 6 HOURS, (Reported) Multivitamin Liquid* (Multi-Delyn*), 5 ML GT DAILY, (Reported) Pantoprazole Sodium (Protonix), 40 MG GT DAILY Scheduled PRN Acetaminophen (Acetaminophen), 650 MG GT Q4H PRN for For Pain, (Reported) Magnesium Hydroxide* (Milk Of Magnesia*), 30 ML GT DAILY PRN for Constipation, ( Reported) Patient History Healthcare decision maker Shelley Michelle, Daughter Resuscitation status Advanced Directive on File Review of Systems ROS Narrative patient is unable to provide any info 2 to advance dementia Physical Exam Physical Exam Narrative General Appearance: no apparent distress, alert, Chronically ill elderly frail female Head: normocephalic, atraumatic Eyes: EOMI, PERRL-bilaterally Neck: full range of motion, supple, Respiratory: chest non-tender, lungs clear, Cardiovascular #1: regular rate, no murmur, tachycardia Gastrointestinal: normal bowel sounds, non tender, mild distention, no organomegaly, no bruit, G-tube ; Musculoskeletal: back normal, normal range of motion Neurologic: alert, responsive, demented Skin: warm/dry Last 24 Hour Vital Signs Date Time Temp Pulse Resp B/P Pulse Ox O2 Delivery O2 Flow Rate FiO2 03/06/17 08:00 95.5 81 18 94/57 96 Room Air 03/06/17 04:00 96.1 90 16 102/49 99 Room Air 03/06/17 03:31 98.7 101 12 101/41 97 Room Air 03/06/17 03:21 97 12 112/66 97 Room Air 03/06/17 01:59 98.7 103 19 110/50 99 Room Air 03/05/17 23:00 98.7 127 16 144/63 99 Room Air 03/05/17 22:32 125 13 112/60 99 Room Air Intake and Output 03/05/17 03/06/17 19:00 07:00 Intake Total 1030 ml Output Total 375 ml Balance 655 ml Intake Oral 0 ml Free Water 30 ml IV Total 1000 ml Output Urine Total 375 ml Laboratory Tests Test 03/05/17 23:15 03/05/17 23:20 Urine Color Pale yellow Urine Appearance Clear Urine pH 5 (4.5-8.0) Urine Specific [place] 1.015 (1.005-1.035) Urine Protein 2+ (NEGATIVE) H Urine Glucose (UA) 4+ (NEGATIVE) H Urine Ketones Negative (NEGATIVE) Urine Occult Blood 2+ (NEGATIVE) H Urine Nitrite Negative (NEGATIVE) Urine Bilirubin Negative (NEGATIVE) Urine Urobilinogen Normal MG/DL (0.0-1.0) Urine Leukocyte Esterase Negative (NEGATIVE) Urine RBC 2-4 /HPF (0 - 2) H Urine WBC 0-2 /HPF (0 - 2) Urine Squamous Epithelial Cells Few /LPF (NONE/OCC) Urine Bacteria None /HPF (NONE) White Blood Count 16.2 K/UL (4.8-10.8) H Red Blood Count 4.89 M/UL (4.20-5.40) Hemoglobin 16.1 G/DL (12.0-16.0) H Hematocrit 47.2 % (37.0-47.0) H Mean Corpuscular Volume 97 FL (80-99) Mean Corpuscular Hemoglobin 32.9 PG (27.0-31.0) H Mean Corpuscular Hemoglobin Concent 34.1 G/DL (32.0-36.0) Red Cell Distribution Width 12.3 % (11.6-14.8) Platelet Count 275 K/UL (150-450) Mean Platelet Volume 7.3 FL (6.5-10.1) Neutrophils (%) (Auto) 77.8 % (45.0-75.0) H Lymphocytes (%) (Auto) 15.7 % (20.0-45.0) L Monocytes (%) (Auto) 6.0 % (1.0-10.0) Eosinophils (%) (Auto) 0.1 % (0.0-3.0) Basophils (%) (Auto) 0.5 % (0.0-2.0) Prothrombin Time 10.0 SEC (9.30-11.50) Prothromb Time International Ratio 1.0 (0.9-1.1) Activated Partial Thromboplast Time 25 SEC (23-33) Sodium Level 143 mEQ/L (135-145) Potassium Level 4.4 mEQ/L (3.4-4.9) Chloride Level 101 mEQ/L (98-107) Carbon Dioxide Level 26 mEQ/L (20-30) Anion Gap 16 (5-15) H Blood Urea Nitrogen 38 mg/dL (7-23) H Creatinine 0.5 mg/dL (0.5-0.9) Estimat Glomerular Filtration Rate mL/min (>60) Glucose Level 148 mg/dL (74-106) H Lactic Acid Level 1.80 mmol/L (0.66-2.22) Calcium Level 10.0 mg/dL (8.6-10.2) Total Bilirubin 1.1 mg/dL (0.0-1.2) Direct Bilirubin 0.2 mg/dL (0.1-0.3) Aspartate Amino Transf (AST/SGOT) 21 U/L (5-40) Alanine Aminotransferase (ALT/SGPT) 29 U/L (3-33) Alkaline Phosphatase 113 U/L (35-104) H Total Protein 7.8 g/dL (6.6-8.7) Albumin 3.9 g/dL (3.5-5.2) Globulin 3.9 g/dL Albumin/Globulin Ratio 1.0 (1.0-2.7) Lipase 27 U/L (< 60) Height (Feet): 5 Height (Inches): 0.00 Weight (Pounds): 145 Medications Current Medications Medications (Trade) Dose Ordered Sig/Gonzalo Route PRN Reason Start Time Stop Time Status Last Admin Dose Admin Acetaminophen (Tylenol) 650 mg Q4H PRN ORAL fever 03/06/17 08:45 04/05/17 08:44 Al Hydroxide/Mg Hydroxide (Mylanta II) 30 ml Q6H PRN ORAL dyspepsia 03/06/17 08:45 04/05/17 08:44 Dextrose STAT PRN IV Hypoglycemia 03/06/17 08:45 04/05/17 08:44 Dextrose/Sodium Chloride (D5ns) 1,000 ml @ 100 mls/hr Q10H IV 03/06/17 09:30 04/05/17 09:29 03/06/17 09:31 Diphenhydramine HCl (Benadryl) 25 mg Q6H PRN ORAL Itching/Pruritis 03/06/17 08:45 04/05/17 08:44 Morphine Sulfate (Morphine Sulfate) 2 mg EVERY 4 HOURS PRN IVP severe Pain (Pain Scale 7-10) 03/06/17 08:45 03/13/17 08:44 Nitroglycerin (Ntg) 0.4 mg Q5M X 3 DOSES PRN SL Prn Chest Pain 03/06/17 08:45 04/05/17 08:44 Ondansetron HCl (Zofran) 4 mg Q6H PRN IVP Nausea & Vomiting 03/06/17 08:45 04/05/17 08:44 Polyethylene Glycol (Miralax) 17 gm HSPRN PRN ORAL Constipation 03/06/17 08:45 04/05/17 08:44 Temazepam (Restoril) 15 mg HSPRN PRN ORAL Insomnia 03/06/17 08:45 03/13/17 08:44 Assessment/Plan Assessment/Plan ASSESSMENT upper GI bleeding fecal impaction distended abdomen dehydration dysphagia, G tube hx of DVT, PE PLAN OF CARE MS floor meticulous bowel regimen IVF, monitor renal paarmeters, lytes GI consult upper GI bleeding likely r/t massive fecal impaction HH stable hold TF for now DVT, GI prophylaxis venous Duplex BLE case discussed and evaluated by supervising physician Luciano (Elza),Belinda MANUEL Mar 06, 2017 11:13
--- NOTE | 2017-03-06 12:13 | Diagnostic Imaging Report ---
Indication: Abdominal pain Technique: Continuous helical transaxial imaging of the abdomen and pelvis was obtained from the lung bases to the pubic symphysis during intravenous contrast administration. Coronal 2-D reformats were also obtained. Study obtained in a Siemens sensation [address] Total Dose length Product (DLP): [address] Dose Index Volume (CTDIvol): 17 mGy Comparison: None Findings: There is massive distention of the rectum due to feces. There is mild basilar atelectasis. Breathing motion limits evaluation. Gastrostomy noted in good position. Horseshoe kidney demonstrated. There is a prominent left parapelvic cyst measuring approximately 2.9 cm. Other small cortical cysts are present within the kidney. IVC filter noted. Aorta is moderately calcified. The spleen, liver and adrenal glands, the pancreas and gallbladder are grossly unremarkable. There is no free fluid identified. Appendix not definitely seen. There are no secondary signs of acute appendicitis. There is a probable small left inguinal hernia containing fat. There is a left dynamic hip screw. Bones are osteopenic. Enlargement of the right lesser trochanter noted. Impression: Fecal impaction. Horseshoe kidney. Left renal cyst and other small cortical cyst. IVC filter Atherosclerotic vascular disease Suspected small left inguinal hernia containing fat Evidence of previous left hip trauma. Status post dynamic hip screw. Osteopenia Deformity of the right lesser trochanter probably on the basis of previous trauma. Mild posterior basilar atelectasis Motion artifacts Hiatal hernia Gastrostomy The CT scanner at [facility] is accredited by the [employer] and the scans are performed using dose optimization techniques as appropriate to a performed exam including Automatic Exposure control.
[2017-03-06] MEDS: Fleet's Enema 133ml RECTAL ONE ×2 (15:48→15:52)
[2017-03-06] MEDS: Lactulose 20gm/30ml UDC ORAL SCH (18:17)
[2017-03-06] MEDS: Docusate 100mg cap ORAL SCH (18:17)
[2017-03-06] MEDS ORDERED: NS 275ml ONE (22:58)
[2017-03-06] MEDS ORDERED: Sterile Water For Irrig 2000ml IRRIG ONE (22:58)
[2017-03-06] MEDS ORDERED: Tubing IV Secondary IV ONE (22:58)
[2017-03-07 00:02] VITALS: BP 146/67
[2017-03-07 04:15] VITALS: BP 137/90
[2017-03-07] MEDS: D5NS 1,000 ML IV SCH ×2 (05:23→13:29)
[2017-03-07 08:07] VITALS: BP 107/64
[2017-03-07 08:12] LABS: ALANINE AMINOTRANSFERASE 20 U/L (3-33); ALBUMIN/GLOBULIN RATIO 1.1 (1.0-2.7); AMYLASE 67 U/L (10-110); ANION GAP 10 (5-15); ASPARTATE AMINO TRANSFERASE 21 U/L (5-40); CALCIUM 8.1 mg/dL (8.6-10.2); CARBON DIOXIDE 25 mEQ/L (20-30); CHLORIDE 108 mEQ/L (98-107); CREATININE 0.5 mg/dL (0.5-0.9); HEMOLYSIS 4; LIPASE 27 U/L (< 60); POTASSIUM 3.4 mEQ/L (3.4-4.9); SODIUM 143 mEQ/L (135-145); TOTAL PROTEIN 5.6 g/dL (6.6-8.7)
[2017-03-07 08:30] LABS: BASOPHILS % (AUTO) 0.5 % (0.0-2.0); LYMPHOCYTES % (AUTO) 26.5 % (20.0-45.0); MEAN CORPUSCULAR HEMOGLOBIN 33.2 PG (27.0-31.0); MEAN CORPUSCULAR HGB CONC 33.9 G/DL (32.0-36.0); MEAN CORPUSCULAR VOLUME 98 FL (80-99); MEAN PLATELET VOLUME 7.9 FL (6.5-10.1); MONOCYTES % (AUTO) 6.3 % (1.0-10.0); NEUTROPHILS % (AUTO) 63.7 % (45.0-75.0); PLATELET COUNT 215 K/UL (150-450); RED BLOOD COUNT 3.54 M/UL (4.20-5.40); RED CELL DISTRIBUTION WIDTH 12.1 % (11.6-14.8); WHITE BLOOD COUNT 10.8 K/UL (4.8-10.8)
[2017-03-07 08:40] LABS: PROTHROMBIN TIME 10.1 SEC (9.30-11.50)
[2017-03-07 08:41] LABS: BILIRUBIN,DIRECT 0.2 mg/dL (0.1-0.3)
[2017-03-07] MEDS ORDERED: D5NS 1000ml IV ONE (09:14)
[2017-03-07] MEDS: Docusate 100mg cap ORAL SCH ×2 (09:24→17:08)
[2017-03-07] MEDS: Lactulose 20gm/30ml UDC ORAL SCH ×3 (09:24→17:08)
--- NOTE | 2017-03-07 11:16 | Cardiology Report ---
APPROVED REPORT EKG Measurement Heart [id number] Sinus tachycardia Otherwise normal ECG
[2017-03-07 12:05] VITALS: BP 143/66
--- NOTE | 2017-03-07 12:18 | Pulmonology Progress Note ---
Assessment/Plan Assessment/Plan ASSESSMENT upper GI bleeding fecal impaction distended abdomen dehydration dysphagia, G tube hx of DVT, PE PLAN OF CARE MS floor meticulous bowel regimen IVF, monitor renal parameters, lytes GI consult appreciated s/p disimpaction upper GI bleeding likely r/t massive fecal impaction HH stable hold TF for now until seen by GI specialist DVT, GI prophylaxis venous Duplex BLE case discussed and evaluated by supervising physician Subjective Allergies: Coded Allergies: CEPHALEXIN (Verified Allergy, Unknown, 03/06/17) Subjective leukocytosis resolved, afebrile HH with trend down had BM yesterday and this am seen by GI who disimpacted the patient Objective Last 24 Hour Vital Signs Date Time Temp Pulse Resp B/P Pulse Ox O2 Delivery O2 Flow Rate FiO2 03/07/17 08:07 96.3 90 18 107/64 98 Room Air 03/07/17 04:15 97.4 91 18 137/90 97 Room Air 03/07/17 00:02 97.2 102 18 146/67 95 Room Air 03/06/17 20:10 96.4 99 18 146/73 97 Room Air 03/06/17 15:58 96.6 100 18 150/71 97 Room Air Intake and Output 03/06/17 03/07/17 19:00 07:00 Intake Total 800 ml 1000 ml Output Total 700 ml 1050 ml Balance 100 ml -50 ml IV Total 800 ml 1000 ml Output Urine Total 700 ml 1050 ml # Bowel Movements 1 1 Objective General Appearance: no apparent distress, alert, Chronically ill elderly frail female Head: normocephalic, atraumatic Eyes: EOMI, PERRL-bilaterally Neck: full range of motion, supple, Respiratory: chest non-tender, lungs clear, Cardiovascular #1: regular rate, no murmur, tachycardia Gastrointestinal: normal bowel sounds, non tender, mild distention, no organomegaly, no bruit, G-tube ; Musculoskeletal: back normal, normal range of motion Neurologic: alert, responsive, demented Skin: warm/dry Microbiology Date/Time Source Procedure Growth Status 03/05/17 23:05 Blood Blood Culture - Preliminary NO GROWTH AFTER 24 HOURS Resulted 03/05/17 22:50 Blood Blood Culture - Preliminary NO GROWTH AFTER 24 HOURS Resulted Laboratory Tests 03/07/17 06:15: White Blood Count 10.8, Red Blood Count 3.54L, Hemoglobin 11.8L, Hematocrit 34.7L, Mean Corpuscular Volume 98, Mean Corpuscular Hemoglobin 33.2H, Mean Corpuscular Hemoglobin Concent 33.9, Red Cell Distribution Width 12.1, Platelet Count 215, Mean Platelet Volume 7.9, Neutrophils (%) (Auto) 63.7, Lymphocytes (% ) (Auto) 26.5, Monocytes (%) (Auto) 6.3, Eosinophils (%) (Auto) 3.0, Basophils ( %) (Auto) 0.5, Prothrombin Time 10.1, Prothromb Time International Ratio 1.0, Activated Partial Thromboplast Time 25, Sodium Level 143, Potassium Level 3.4, Chloride Level 108H, Carbon Dioxide Level 25, Anion Gap 10, Blood Urea Nitrogen 13#, Creatinine 0.5, Estimat Glomerular Filtration Rate , Glucose Level 111H, Calcium Level 8.1L, Total Bilirubin 1.1, Direct Bilirubin 0.2, Aspartate Amino Transf (AST/SGOT) 21, Alanine Aminotransferase (ALT/SGPT) 20, Alkaline Phosphatase 74, Total Protein 5.6L, Albumin 3.0L, Globulin 2.6, Albumin/ Globulin Ratio 1.1, Amylase Level 67, Lipase 27 Current Medications Medications (Trade) Dose Ordered Sig/Gonzalo Route PRN Reason Start Time Stop Time Status Last Admin Dose Admin Acetaminophen (Tylenol) 650 mg Q4H PRN ORAL fever 03/06/17 08:45 04/05/17 08:44 Al Hydroxide/Mg Hydroxide (Mylanta II) 30 ml Q6H PRN ORAL dyspepsia 03/06/17 08:45 04/05/17 08:44 Dextrose STAT PRN IV Hypoglycemia 03/06/17 08:45 04/05/17 08:44 Dextrose/Sodium Chloride (D5ns) 1,000 ml @ 100 mls/hr Q10H IV 03/06/17 09:30 04/05/17 09:29 03/07/17 05:23 Diphenhydramine HCl (Benadryl) 25 mg Q6H PRN ORAL Itching/Pruritis 03/06/17 08:45 04/05/17 08:44 Docusate Sodium (Colace) 100 mg TWICE A DAY ORAL 03/06/17 18:00 04/05/17 17:59 03/07/17 09:24 Lactulose (Cephulac) 30 gm THREE TIMES A DAY ORAL 03/06/17 18:00 04/05/17 17:59 03/07/17 09:24 Morphine Sulfate (Morphine Sulfate) 2 mg EVERY 4 HOURS PRN IVP severe Pain (Pain Scale 7-10) 03/06/17 08:45 03/13/17 08:44 Nitroglycerin (Ntg) 0.4 mg Q5M X 3 DOSES PRN SL Prn Chest Pain 03/06/17 08:45 04/05/17 08:44 Ondansetron HCl (Zofran) 4 mg Q6H PRN IVP Nausea & Vomiting 03/06/17 08:45 04/05/17 08:44 Polyethylene Glycol (Miralax) 17 gm HSPRN PRN ORAL Constipation 03/06/17 08:45 04/05/17 08:44 Temazepam (Restoril) 15 mg HSPRN PRN ORAL Insomnia 03/06/17 08:45 03/13/17 08:44 03/06/17 23:51 Luciano SeguraBelinda cano NP Mar 07, 2017 12:18
[2017-03-07] MEDS ORDERED: Fleet's Enema 133ml RECTAL ONE (13:00)
[2017-03-07] MEDS ORDERED: KCl 10% 20 mEq/15ml liquid NG ONE (13:00)
--- NOTE | 2017-03-07 15:22 | General Progress Note ---
Assessment/Plan Assessment/Plan GI Consult Patient disimpacted consult dictated Subjective Allergies: Coded Allergies: CEPHALEXIN (Verified Allergy, Unknown, 03/06/17) Objective Last 24 Hour Vital Signs Date Time Temp Pulse Resp B/P Pulse Ox O2 Delivery O2 Flow Rate FiO2 03/07/17 12:05 97.7 85 20 143/66 99 Room Air 03/07/17 08:07 96.3 90 18 107/64 98 Room Air 03/07/17 04:15 97.4 91 18 137/90 97 Room Air 03/07/17 00:02 97.2 102 18 146/67 95 Room Air 03/06/17 20:10 96.4 99 18 146/73 97 Room Air 03/06/17 15:58 96.6 100 18 150/71 97 Room Air Intake and Output 03/06/17 03/07/17 19:00 07:00 Intake Total 800 ml 1000 ml Output Total 700 ml 1050 ml Balance 100 ml -50 ml IV Total 800 ml 1000 ml Output Urine Total 700 ml 1050 ml # Bowel Movements 1 1 Laboratory Tests 03/07/17 06:15: White Blood Count 10.8, Red Blood Count 3.54L, Hemoglobin 11.8L, Hematocrit 34.7L, Mean Corpuscular Volume 98, Mean Corpuscular Hemoglobin 33.2H, Mean Corpuscular Hemoglobin Concent 33.9, Red Cell Distribution Width 12.1, Platelet Count 215, Mean Platelet Volume 7.9, Neutrophils (%) (Auto) 63.7, Lymphocytes (% ) (Auto) 26.5, Monocytes (%) (Auto) 6.3, Eosinophils (%) (Auto) 3.0, Basophils ( %) (Auto) 0.5, Prothrombin Time 10.1, Prothromb Time International Ratio 1.0, Activated Partial Thromboplast Time 25, Sodium Level 143, Potassium Level 3.4, Chloride Level 108H, Carbon Dioxide Level 25, Anion Gap 10, Blood Urea Nitrogen 13#, Creatinine 0.5, Estimat Glomerular Filtration Rate , Glucose Level 111H, Calcium Level 8.1L, Total Bilirubin 1.1, Direct Bilirubin 0.2, Aspartate Amino Transf (AST/SGOT) 21, Alanine Aminotransferase (ALT/SGPT) 20, Alkaline Phosphatase 74, Total Protein 5.6L, Albumin 3.0L, Globulin 2.6, Albumin/ Globulin Ratio 1.1, Amylase Level 67, Lipase 27 Height (Feet): 5 Height (Inches): 0.00 Weight (Pounds): 145 NUZHAT WALTON Mar 07, 2017 15:22
[2017-03-07 16:00] VITALS: BP 133/76
[2017-03-07] MEDS ORDERED: Sorbitol Solution UD 30ml ORAL ONE (16:00)
[2017-03-07 20:00] VITALS: BP 143/86
--- NOTE | 2017-03-07 21:02 | Consultation ---
DATE OF CONSULTATION: 03/07/2017 GASTROLOGY CONSULTATION CHIEF COMPLAINT: I was asked to see this patient by Dr. Josefa Zhang for evaluation of constipation and upper gastrointestinal bleeding. HISTORY OF PRESENT ILLNESS: The patient is a debilitated 87-year-old woman with dementia and gastrostomy tube who presents to the hospital with one episode of coffee-ground emesis. The patient had imaging workup. The patient was found to have severe stool impaction. The patient was admitted to the medical floor for further evaluation and care. She is NPO. The patient cannot provide any additional information other than the chart . PAST MEDICAL HISTORY: History of dementia, dysphagia, gastroesophageal reflux disease status post gastrostomy tube placement, and bedbound state. MEDICATIONS: See chart for details. ALLERGIES: Per chart. FAMILY HISTORY: Not available. SOCIAL HISTORY: The patient resides in a senior living and requires fxrns-mgd-estow care. REVIEW OF SYSTEMS: Not obtainable. PHYSICAL EXAMINATION: GENERAL: This is an elderly woman, seen in her room. HEENT: Normocephalic and atraumatic. Sclerae anicteric. Oropharynx could not be seen. NECK: Appeared supple. CHEST: Clear to auscultation. CARDIOVASCULAR: Regular rate. ABDOMEN: Soft. Good bowel sounds. Gastrostomy tube is in good position. EXTREMITIES: No edema. RECTAL: Done with nurse assistant banquet manager at bedside stool impaction. The patient was disimpacted of about 750 g of stool. NEUROLOGIC: Otherwise nonfocal. LABORATORY DATA: Laboratory data was noted. ASSESSMENT: This patient presents with an episode of coffee-ground emesis which may be due to gastroesophageal reflux disease, this may worsened by fecal impaction . The patient has had a drop in hematocrit which might be due to dilution. Her stools in the rectal vault were yellow brown and not melena. I suspect that her episode of gastrointestinal bleeding is minor and self-limited. She can undergo endoscopy later this week but this is not an emergency. She will receive bowel regimen to disimpact her colon and sent stool for ova and parasite. She will need long-term bowel regimen. RECOMMENDATIONS: Per above discussion and per orders written in the chart. Thank you for asking me to participate in the care of this patient. Khurram Moe M.D. DR: NIR JOB#: [id number] CC:
[2017-03-08] MEDS: D5NS 1,000 ML IV SCH (00:49)
[2017-03-08 04:45] VITALS: BP 139/74
[2017-03-08 07:16] LABS: BASOPHILS % (AUTO) 0.6 % (0.0-2.0); EOSINOPHILS % (AUTO) 0.5 % (0.0-3.0); LYMPHOCYTES % (AUTO) 13.6 % (20.0-45.0); MEAN CORPUSCULAR HEMOGLOBIN 33.9 PG (27.0-31.0); MEAN CORPUSCULAR HGB CONC 34.4 G/DL (32.0-36.0); MEAN CORPUSCULAR VOLUME 98 FL (80-99); MEAN PLATELET VOLUME 7.4 FL (6.5-10.1); MONOCYTES % (AUTO) 5.4 % (1.0-10.0); NEUTROPHILS % (AUTO) 79.9 % (45.0-75.0); PLATELET COUNT 231 K/UL (150-450); RED BLOOD COUNT 3.74 M/UL (4.20-5.40); RED CELL DISTRIBUTION WIDTH 12.3 % (11.6-14.8); WHITE BLOOD COUNT 11.9 K/UL (4.8-10.8)
[2017-03-08 07:42] LABS: FERRITIN 92 ng/mL (13-150); THYROID STIMULATING HORMONE 0.868 uIU/mL (0.300-4.500)
[2017-03-08 07:43] LABS: ANION GAP 13 (5-15); CALCIUM 8.9 mg/dL (8.6-10.2); CARBON DIOXIDE 20 mEQ/L (20-30); CHLORIDE 116 mEQ/L (98-107); CREATININE 0.4 mg/dL (0.5-0.9); HEMOLYSIS 9; IRON 45 ug/dL (37-145); POTASSIUM 3.4 mEQ/L (3.4-4.9); SODIUM 149 mEQ/L (135-145); TOTAL IRON BINDING CAPACITY 285 ug/dL (250-400)
[2017-03-08 08:02] VITALS: BP 161/73
[2017-03-08] MEDS: Lactulose 20gm/30ml UDC ORAL SCH ×3 (08:25→18:00)
[2017-03-08] MEDS: Docusate 100mg cap ORAL SCH ×2 (08:25→18:04)
[2017-03-08 11:40] VITALS: BP 139/91
--- NOTE | 2017-03-08 13:40 | Diagnostic Imaging Report ---
APPROVED REPORT CPT Code: 49568 Present Symptoms Comments: R/O DVT Past History DVT :Left RIGHT LEG: Venous imaging reveals a patent deep venous system. There is no evidence of thrombus within the femoral, popliteal or tibial segments. The greater saphenous vein is also within normal limits. Doppler indicates normal spontaneous flow within these segments. LEFT LEG: Venous imaging reveals acute thrombus in the superficial femoral vein. 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 Remainder of the deep venous system within normal limits. No evidence of thrombus in the calf veins. Greater saphenous vein also within normal limits. BREONNA Catherine was notified of abnormal results at 1040 hours.
--- NOTE | 2017-03-08 14:07 | Pulmonology Progress Note ---
Assessment/Plan Problems: (1) Vomiting (2) Acute prerenal azotemia (3) DM (diabetes mellitus) (4) HTN (hypertension) Assessment/Plan h/h stable tolerating feeding Subjective ROS Limited/Unobtainable: No Constitutional: Reports: no symptoms HEENT: Repors: no symptoms Respiratory: Reports: no symptoms Cardiovascular: Reports: no symptoms Allergies: Coded Allergies: CEPHALEXIN (Verified Allergy, Unknown, 03/06/17) Objective Last 24 Hour Vital Signs Date Time Temp Pulse Resp B/P Pulse Ox O2 Delivery O2 Flow Rate FiO2 03/08/17 11:40 96.8 91 18 139/91 98 Room Air 03/08/17 08:02 97.0 111 18 161/73 97 Room Air 03/08/17 04:45 97.6 93 18 139/74 93 Room Air 03/07/17 20:00 97.7 116 16 143/86 97 Room Air 03/07/17 16:00 97.3 95 19 133/76 98 Room Air Intake and Output 03/07/17 03/08/17 19:00 07:00 Intake Total 1200 ml 1200 ml Output Total 500 ml 350 ml Balance 700 ml 850 ml IV Total 1200 ml 1200 ml Output Urine Total 500 ml 350 ml # Bowel Movements 2 1 General Appearance: WD/WN HEENT: normocephalic, atraumatic Respiratory/Chest: chest wall non-tender, lungs clear Cardiovascular: normal peripheral pulses, normal rate Abdomen: normal bowel sounds, soft, non tender Genitourinary: normal external genitalia Skin: no rash Neurologic/Psychiatric: bike mechanic II-XII grossly normal Lymphatic: no neck adenopathy Microbiology Date/Time Source Procedure Growth Status 03/05/17 23:05 Blood Blood Culture - Preliminary NO GROWTH AFTER 48 HOURS Resulted 03/05/17 22:50 Blood Blood Culture - Preliminary NO GROWTH AFTER 48 HOURS Resulted Laboratory Tests 03/08/17 05:15: White Blood Count 11.9H, Red Blood Count 3.74L, Hemoglobin 12.7, Hematocrit 36.9L, Mean Corpuscular Volume 98, Mean Corpuscular Hemoglobin 33.9H, Mean Corpuscular Hemoglobin Concent 34.4, Red Cell Distribution Width 12.3, Platelet Count 231, Mean Platelet Volume 7.4, Neutrophils (%) (Auto) 79.9H, Lymphocytes ( %) (Auto) 13.6L, Monocytes (%) (Auto) 5.4, Eosinophils (%) (Auto) 0.5, Basophils (%) (Auto) 0.6, Sodium Level 149H, Potassium Level 3.4, Chloride Level 116H, Carbon Dioxide Level 20, Anion Gap 13, Blood Urea Nitrogen 7, Creatinine 0.4L, Estimat Glomerular Filtration Rate , Glucose Level 100, Calcium Level 8.9, Iron Level 45, Total Iron Binding Capacity 285, Percent Iron Saturation 16, Unsaturated Iron Binding 240, Ferritin 92, Vitamin B12 Level 1524H, Folate [Pending], Thyroid Stimulating Hormone (TSH) 0.868 Current Medications Medications (Trade) Dose Ordered Sig/Gonzalo Route PRN Reason Start Time Stop Time Status Last Admin Dose Admin Acetaminophen (Tylenol) 650 mg Q4H PRN ORAL fever 03/06/17 08:45 04/05/17 08:44 Al Hydroxide/Mg Hydroxide (Mylanta II) 30 ml Q6H PRN ORAL dyspepsia 03/06/17 08:45 04/05/17 08:44 Dextrose (Dextrose 50%) STAT PRN IV Hypoglycemia 03/06/17 08:45 04/05/17 08:44 Diphenhydramine HCl (Benadryl) 25 mg Q6H PRN ORAL Itching/Pruritis 03/06/17 08:45 04/05/17 08:44 Docusate Sodium (Colace) 100 mg TWICE A DAY ORAL 03/06/17 18:00 04/05/17 17:59 03/08/17 08:25 Lactulose (Cephulac) 30 gm THREE TIMES A DAY ORAL 03/06/17 18:00 04/05/17 17:59 03/08/17 12:09 Morphine Sulfate (Morphine Sulfate) 2 mg EVERY 4 HOURS PRN IVP severe Pain (Pain Scale 7-10) 03/06/17 08:45 03/13/17 08:44 Nitroglycerin (Ntg) 0.4 mg Q5M X 3 DOSES PRN SL Prn Chest Pain 03/06/17 08:45 04/05/17 08:44 Ondansetron HCl (Zofran) 4 mg Q6H PRN IVP Nausea & Vomiting 03/06/17 08:45 04/05/17 08:44 Polyethylene Glycol (Miralax) 17 gm HSPRN PRN ORAL Constipation 03/06/17 08:45 04/05/17 08:44 Temazepam (Restoril) 15 mg HSPRN PRN ORAL Insomnia 03/06/17 08:45 03/13/17 08:44 03/06/17 23:51 STAN YAN Mar 08, 2017 14:07
--- NOTE | 2017-03-08 14:20 | GI Progress Note ---
Assessment/Plan Problems: (1) DM (diabetes mellitus) ICD Codes: E11.9 - Type 2 diabetes mellitus without complications SNOMED: 15958350 (2) GI bleed ICD Codes: K92.2 - Gastrointestinal hemorrhage, unspecified SNOMED: 02503373 Qualifiers: Qualified Codes: K92.2 - Gastrointestinal hemorrhage, unspecified (3) Esophagitis, acute ICD Codes: K20.9 - Esophagitis, unspecified SNOMED: 378739064 (4) Anemia ICD Codes: D64.9 - Anemia, unspecified SNOMED: 862709076 (5) Vomiting ICD Codes: R11.10 - Vomiting, unspecified SNOMED: 518325682 Qualifiers: Qualified Codes: R11.10 - Vomiting, unspecified (6) Constipation ICD Codes: K59.00 - Constipation, unspecified SNOMED: 17545864 Qualifiers: Qualified Codes: K59.00 - Constipation, unspecified Status: stable Status Narrative Discussed with Dr. Marroquin. Assessment/Plan Endoscopy Procedure Note Indication for Procedure: GIB Procedures Performed: EGD Operative Findings/Diagnosis: severe esophagitis with ulcers, bx esophagus NUZHAT WALTON - Sep 21, 2016 11:57 will consider EGD Wednesday given possible acute bleed and hx of esophageal ulcers monitor H&H, transfuse prn prevacid GT GTF per dietary OB stool r/o GI bleed bowel regime fu O&P fu labs Discussed with Dr. Marroquin. Thank you for referring this patient, we will follow. The patient was seen and examined at bedside and all new and available data was reviewed in the patients chart. I agree with the above findings, impression and plan. (Patient seen earlier today. Signature stamp does not reflect patient encounter time.). -To Marroquin MD Subjective Subjective limited Objective Last 24 Hour Vital Signs Date Time Temp Pulse Resp B/P Pulse Ox O2 Delivery O2 Flow Rate FiO2 03/08/17 11:40 96.8 91 18 139/91 98 Room Air 03/08/17 08:02 97.0 111 18 161/73 97 Room Air 03/08/17 04:45 97.6 93 18 139/74 93 Room Air 03/07/17 20:00 97.7 116 16 143/86 97 Room Air 03/07/17 16:00 97.3 95 19 133/76 98 Room Air Intake and Output 03/07/17 03/08/17 19:00 07:00 Intake Total 1200 ml 1200 ml Output Total 500 ml 350 ml Balance 700 ml 850 ml IV Total 1200 ml 1200 ml Output Urine Total 500 ml 350 ml # Bowel Movements 2 1 Laboratory Tests Test 03/08/17 05:15 White Blood Count 11.9 K/UL (4.8-10.8) H Red Blood Count 3.74 M/UL (4.20-5.40) L Hemoglobin 12.7 G/DL (12.0-16.0) Hematocrit 36.9 % (37.0-47.0) L Mean Corpuscular Volume 98 FL (80-99) Mean Corpuscular Hemoglobin 33.9 PG (27.0-31.0) H Mean Corpuscular Hemoglobin Concent 34.4 G/DL (32.0-36.0) Red Cell Distribution Width 12.3 % (11.6-14.8) Platelet Count 231 K/UL (150-450) Mean Platelet Volume 7.4 FL (6.5-10.1) Neutrophils (%) (Auto) 79.9 % (45.0-75.0) H Lymphocytes (%) (Auto) 13.6 % (20.0-45.0) L Monocytes (%) (Auto) 5.4 % (1.0-10.0) Eosinophils (%) (Auto) 0.5 % (0.0-3.0) Basophils (%) (Auto) 0.6 % (0.0-2.0) Sodium Level 149 mEQ/L (135-145) H Potassium Level 3.4 mEQ/L (3.4-4.9) Chloride Level 116 mEQ/L (98-107) H Carbon Dioxide Level 20 mEQ/L (20-30) Anion Gap 13 (5-15) Blood Urea Nitrogen 7 mg/dL (7-23) Creatinine 0.4 mg/dL (0.5-0.9) L Estimat Glomerular Filtration Rate mL/min (>60) Glucose Level 100 mg/dL (74-106) Calcium Level 8.9 mg/dL (8.6-10.2) Iron Level 45 ug/dL (37-145) Total Iron Binding Capacity 285 ug/dL (250-400) Percent Iron Saturation 16 % (15-50) Unsaturated Iron Binding 240 ug/dL (112-346) Ferritin 92 ng/mL (13-150) Vitamin B12 Level 1524 pg/mL (211-946) H Folate Pending Thyroid Stimulating Hormone (TSH) 0.868 uIU/mL (0.300-4.500) Height (Feet): 5 Height (Inches): 0.00 Weight (Pounds): 145 General Appearance: no apparent distress, alert Cardiovascular: normal rate Abdominal Exam: normal bowel sounds, non tender, soft Genitourinary/Rectal: normal rectal exam Tiarra Perea N.PKarely Mar 08, 2017 14:20 TO MARROQUIN Mar 10, 2017 08:02
[2017-03-08 16:00] VITALS: BP 147/70
[2017-03-08] MEDS ORDERED: D5NS 1000ml IV ONE (19:29)
[2017-03-08] MEDS ORDERED: Sterile Water Irrig 1000ml IRRIG ONE (19:29)
[2017-03-22] MEDS ORDERED: XARELTO10 MG ORAL ×2 (14:28)
--- NOTE | 2017-03-22 14:34 | Discharge Summary ---
Discharge Summary Hospital Course Date of Admission Mar 06, 2017 at 02:13 Date of Discharge Mar 08, 2017 at 19:30 Admitting Diagnosis GI BLEED HPI Fay Rosario is a 87 year old female who was admitted on Mar 06, 2017 at 02:13 for Gi Bleed Hospital Course dc summary #[id number] Discharge Medications New Medications: Rivaroxaban (Xarelto*) 10 Mg Tablet 15 MG ORAL BID, #42 TAB 0 Refills take twice a day for 21 days, then change to 2o mg daily for 6 months Rivaroxaban (Xarelto*) 10 Mg Tablet 20 MG ORAL DAILY, #180 TAB 0 Refills for 6 months Continued Medications: Acetaminophen (Acetaminophen) 80 Mg Tab.chew 650 MG GT Q4H PRN for For Pain, TAB Lactose-Reduced Food/Fiber (Jevity 1.5 Deo Liquid) 237 Ml Liquid 1000 ML GT BID, ML Metoclopramide Hcl* (Reglan*) 5 Mg Tablet 5 MG ORAL EVERY 6 HOURS, TAB Pantoprazole Sodium (Protonix) 40 Mg Granpkt.dr 40 MG GT DAILY for 30 Days, PKT Discharge Condition Upon Discharge: stable Discharge Disposition Patient was discharged to SNF/Subacute Facility(03) Discharge Diagnoses: Luciano (Elza)Belinda NP Mar 22, 2017 14:34
--- NOTE | 2017-03-23 00:15 | Discharge Summary 2 SIG ---
DATE OF ADMISSION: 03/06/2017 DATE OF DISCHARGE: 03/08/2017 REASON FOR ADMISSION: This is an 87-year-old female with history of dysphagia, G-tube, GERD, and dementia presented with a chief complaint of coffee-ground emesis x1. No fever. No chills. Workup in the emergency room revealed leukocytosis of 16.2 but stable hemoglobin and hematocrit. CT of the abdomen and pelvis revealed fecal impaction. Urinalysis negative for urinary tract infection. Chest x-ray, no evidence of infection. The patient is afebrile. BUN 38, creatinine 0.5. The patient was admitted for further management. ADMITTING DIAGNOSES: 1. Upper gastrointestinal bleeding. 2. Fecal impaction. 3. Dehydration. 4. Distended abdomen. 5. Dysphagia, gastrostomy-tube. 6. History of deep venous thrombosis. 7. Pulmonary embolism. HOSPITAL STAY: The patient admitted to Med/Surg floor. The patient started on meticulous and total bowel regimen. The patient started on the IV fluids. Renal parameters and electrolytes were closely monitored. GI consult was requested. Upper GI bleeding was likely to related to massive fecal impaction. Hemoglobin and hematocrit were stable. Initially tube feeding was on hold. The patient started on DVT and GI prophylaxis. Venous duplex bilateral lower extremity ordered due to the history of chronic DVT and PE. GI seen and evaluated the patient. The patient was disimpacted. According to the GI specialist episodes of coffee-ground emesis could be due to the GERD, which could be worsened due to the fecal impaction. The patient had next day drop in hematocrit which might be due to dilution. During disimpaction, stools in the rectal vault noted to be yellow, brown and no melena. He suspected that episodes for gastrointestinal bleeding was minor and self-limited. Gastrointestinal specialist stated that the endoscopy procedure was not an emergency and she will receive further bowel regimen to disimpaction. She will need a long-term bowel regimen. Blood culture were preliminary negative. Leukocytosis down to 11.9. Subsequently, venous duplex bilateral lower extremity was done and revealed acute DVT in superficial femoral vein in the left lower extremity. The patient started on Xarelto 15 mg twice a day for 21 days follow up with 20 mg daily. Unfortunately, the results become available to doctor after the patient was discharge. The patient's doctor communicated to correction facility to start anticoagulation. Prescription were transmitted to the pharmacy electronically transmitted to the pharmacy. DISCHARGE DIAGNOSES: 1. Upper gastrointestinal bleeding. 2. Fecal impaction, resolved. 3. Dehydration, resolved. 4. Acute prerenal azotemia secondary to dehydration. 5. Dysphagia, gastrostomy-tube. 6. Acute deep venous thrombosis, superficial femoral vein, left lower extremity. 7. History of deep venous thrombosis and pulmonary embolism. DISCHARGE MEDICATIONS: See medication reconciliation list. DISCHARGE INSTRUCTIONS: The patient discharged to correction facility. FOLLOWUP: Follow up with medical doctor at the facility. Josefa Zhang M.D. I have been assigned to dictate discharge summary on this account and I was not involved in the patient's management. Belinda [facility] hospital[facility] N.PKarely DR: CHINYERE JOB#: [id number] CC:
== END 2017-03-08 19:30 | DRG 253 ==
LOC: EDBD 22:42 → EMR 23:54 → EDBEDREQ 03-06 02:04 → 4W 03-06 02:13 → EDBEDREQ 03-06 03:07
DX: K92.2 Gastrointestinal hemorrhage, unspecified (principal); I82.412 Acute embolism and thrombosis of left femoral vein; F03.90 Unspecified dementia, unspecified severity, without behavioral disturbance, psychotic disturbance, mood disturbance, and anxiety; Z43.1 Encounter for attention to gastrostomy; R13.10 Dysphagia, unspecified; E11.9 Type 2 diabetes mellitus without complications; I10 Essential (primary) hypertension; D64.9 Anemia, unspecified; E86.0 Dehydration; Z86.718 Personal history of other venous thrombosis and embolism; Z86.711 Personal history of pulmonary embolism; K56.41 Fecal impaction; K21.9 Gastro-esophageal reflux disease without esophagitis; Z88.1 Allergy status to other antibiotic agents; K20.9 Esophagitis, unspecified
CPT/HCPCS: 36415; 71010; 74177; 80048; 80053; 81003; 82150; 82248; 82607; 82728; 82746; 82962; 83540; 83550; 83605; 83690; 84443; 85025; 85610; 85730; 86850; 86900; 86901; 86920; 87040; 93005; 93970; J2405